=== PATIENT | male | born 1980 | race Caucasian/White ===

== ENCOUNTER → 2017-07-25 | Outpatient (CLI) | payer OTHER ==
[~2017-07-25] MED LIST: DILAUDID 4 MG TA4 M1 PO; IBUPROFEN 800800 M1 PO; KLOR-CON 1010 MEQ PO; LASIX 40 MG TAB40 M2 PO; MS CONTIN15 MG PO; NEURONTIN600 MG PO; OXYCODONE HCL15 MG PO; ROXICODONE15 M1 PO
--- NOTE | 2017-07-27 08:15 | PAINCON ---
[facility] [address] [place] [address] PAIN MANAGEMENT CONSULTATION Name: BETTINA MCCRAY Room: [facility] Ariana#: [id number] Admission: 07/25/17 Attend Phys: Mary Hartley Discharge: Date of : 76 Report #: [id number] THIS REPORT FOR: //name// CC: Reese Wilkerson The patient is a very pleasant 37-year-old gentleman well known to the pain clinic, typically treated for lumbar radiculopathy status post decompressive laminectomy, chronic pain requiring high risk complex medication management, component of right SI mediated pain. The patient was last seen in pain clinic on 05/30/2017, continued on baseline medication including MS Contin 15 mg b.i.d., oxycodone 15 mg 1 tablet 3-4 times a day, limit 100 tablets for 30 days. Current analgesics include gabapentin 600 mg t.i.d. and ibuprofen 800 mg t.i.d. Last random drug screen on 12/13/2016, was positive for prescribed medications. The patient returns to pain clinic today noting medications are generally providing sufficient analgesia to participate in activities of daily living, rates the pain as 7 on a VAS. 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 He uses a cane in his left hand. Chronic right lumbar radicular pain. He is status post multiple surgeries with chronic neuropathic pain, right lower extremity. PHYSICAL EXAMINATION: Unchanged, 5 feet 6 inches, 224 pounds gentleman, BMI is 36.3 kg/m2. Blood pressure 130/68, pulse 74, and respirations are 16. Alert and oriented to person, place and time, judged to be a reasonable historian. Rises from chair using armrest, moderately antalgic gait. Objective, decreased right hip flexion, lower extremity extension strength, slight loss of dorsiflexion on that side. We reviewed the fact that opiate medications are being used to provide analgesia adequate to support activities of daily living, not attempting to achieve a specific pain score on the 0-10 Visual Analog Scale. The current opiate medications are providing sufficient analgesia to allow the patient to participate in activities of daily living. The patient is not exhibiting any aberrant behavior suggestive of drug diversion. The patient is not having any adverse reactions to medications. The patient is not suffering from daytime somnolence or mental acuity changes. The patient is managing opiate-induced constipation with appropriate ryov-vnk-etxwvaa agents and dietary considerations. The patient was counseled on concern for caution with operating a motor vehicle while using opiate medications. A physical exam was performed and the patient's functional status was evaluated. All patients with back pain were advised against the bed rest greater than 4 days and were advised to return to normal activities. Pain score assessment was [facility] [address] [place] [address] PAIN MANAGEMENT CONSULTATION Name: SHAZIABETTINA C Room: [facility]#: [id number] Admission: 07/25/17 Attend Phys: Mary Hartley Discharge: Date of : 76 Report #: [id number] noted and the treatment plan was reviewed with the patient. All current medications, both prescribed and OTC were reviewed and reconciled on the electronic medical record. Tobacco screening was accomplished and smoking cessation was advised when indicated. BMI was noted and diet/exercise modification was recommended for all patients following outside normal parameters. I reviewed with the patient today their responsibilities to safeguard prescription medications, reviewed their responsibility to utilize medications only as prescribed by the physician. They are to seek and receive pain medications only from 1 physician group ( [facility]). They are to use 1 pharmacy and keep the clinic informed if they change pharmacies. Their responsibilities include making followup visits in a timely fashion and to avoid abrupt discontinuation of medication usage. Their responsibilities further include bringing their medications (bottles from the pharmacy with residual pills) to the visit for possible confirmation of pill counts and the patient understands it is their responsibility to submit to random drug screens to ensure both that the medications prescribed are present, and that no other controlled substances are present. All prescriptions provided today were generated electronically. ASSESSMENT: Lumbar radiculopathy status post decompressive laminectomy, neuropathic pain in the right lower extremity, right sacroiliac mediated pain by history requiring high risk complex medication management. RECOMMENDATIONS: Discussion with the patient today about therapeutic option. Again, recommended nicotine cessation, he does use tobacco "chew." We talked today about spinal cord stimulator as possible therapeutic option to help mitigate pain symptoms. We would like to continue baseline medication unchanged, MS Contin 15 mg b.i.d. and oxycodone 15 mg t.i.d. p.r.n. breakthrough pain. The patient was discharged in good and stable condition. I have taken the liberty of writing for 2 months of current medication, follow up at that time, earlier if needed. <ELECTRONICALLY SIGNED> By: Miguel Angel Wilkerson DO 07/27/17 0815 0725 [id number] Angel Wilkerson DO /nt
== END ==
LOC: M.PC 02:01
DX: M54.16 Radiculopathy, lumbar region (principal); M53.3 Sacrococcygeal disorders, not elsewhere classified; M79.661 Pain in right lower leg; G89.29 Other chronic pain; Z79.899 Other long term (current) drug therapy

== ENCOUNTER → 2017-09-19 | Outpatient (CLI) | payer OTHER ==
--- NOTE | 2017-09-20 10:21 | PAINCON ---
[facility] [address] [place] [address] PAIN MANAGEMENT CONSULTATION Name: BETTINA MCCRAY [id number] Admission: 09/19/17 Attend Phys: Mary Hartley Discharge: Date of : 76 Report #: [id number] THIS REPORT FOR: //name// CC: Reese Wilkerson The patient is a 37-year-old gentleman being treated for chronic lumbar radiculopathy status post decompressive laminectomy, right SI mediated pain requiring complex medication management. Last seen in the pain clinic 07/25/2017, continued on baseline medication including MS Contin 15 mg b.i.d. and oxycodone 15 mg 1 tablet up to 3 times a day, limit 90 tablets for 30 days. 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 The patient works at [employer] at [employer]. Primarily sedentary job, but does do some walking. He uses a cane "about 70% of the time" when walking. He has pain and weakness in the right leg, typically uses a cane in the left hand. PHYSICAL EXAMINATION: Shows 5 feet 6 inches, 228 pounds gentleman, BMI is modestly elevated at 35.8 kg/m2. Blood pressure is 132/75, pulse wnl, respirations 16. Rises from chair using armrest, modestly antalgic gait, diffuse tenderness across the low back. Lower extremity strength is otherwise preserved. Gait is generally tandem. The patient continues use nicotine products, he uses a tobacco chew and was counseled regarding same. We reviewed the fact that opiate medications are being used to provide analgesia adequate to support activities of daily living, not attempting to achieve a specific pain score on the 0-10 Visual Analog Scale. The current opiate medications are providing sufficient analgesia to allow the patient to participate in activities of daily living. The patient is not exhibiting any aberrant behavior suggestive of drug diversion. The patient is not having any adverse reactions to medications. The patient is not suffering from daytime somnolence or mental acuity changes. The patient is managing opiate-induced constipation with appropriate vbkw-bdb-hvivqlt agents and dietary considerations. The patient was counseled on concern for caution with operating a motor vehicle while using opiate medications. A physical exam was performed and the patient's functional status was evaluated. All patients with back pain were advised against the bed rest greater than 4 days and were advised to return to normal activities. Pain score assessment was noted and the treatment plan was reviewed with the patient. All current medications, both prescribed and OTC were reviewed and reconciled on the electronic medical record. Tobacco screening [place] [address] PAIN MANAGEMENT CONSULTATION Name: SHAZIABETTINA Room: [facility]#: [id number] Admission: 09/19/17 Attend Phys: Mary Hartley Discharge: Date of : 76 Report #: [id number] cessation was advised when indicated. BMI was noted and diet/exercise modification was recommended for all patients following outside normal parameters. I reviewed with the patient today their responsibilities to safeguard prescription medications, reviewed their responsibility to utilize medications only as prescribed by the physician. They are to seek and receive pain medications only from 1 physician group ( [facility]). They are to use 1 pharmacy and keep the clinic informed if they change pharmacies. Their responsibilities include making followup visits in a timely fashion and to avoid abrupt discontinuation of medication usage. Their responsibilities further include bringing their medications (bottles from the pharmacy with residual pills) to the visit for possible confirmation of pill counts and the patient understands it is their responsibility to submit to random drug screens to ensure both that the medications prescribed are present, and that no other controlled substances are present. All prescriptions provided today were generated electronically. I talked to the patient today about increasing physical activity to help with some weight loss, again counseled regarding cessation of nicotine products. Suggested water aerobics. The patient may be able to join the [facility] or look for a local rec center to do some aquatic therapy. This would probably be the easiest aerobic activity given that he does have some chronic pain in the right hip and SI joint. This would enable exercise without causing significant trauma to the knee and hip. ASSESSMENT: Symptomatic lumbar radiculopathy status post decompressive laminectomy, chronic axial back pain, sacroiliac mediated pain, requiring complex medication management, stable on baseline medications. RECOMMENDATION: Continue MS Contin 15 mg b.i.d., oxycodone 15 mg, limit one tablet 3 times a day. Increase physical activity, suggest water aerobics and smoking cessation. <ELECTRONICALLY SIGNED> By: Miguel Angel Wilkerson DO 09/20/17 1021 0845 [id number] Angel Wilkerson DO /nt
== END ==
LOC: M.PC 03:34
DX: M54.16 Radiculopathy, lumbar region (principal); M53.3 Sacrococcygeal disorders, not elsewhere classified; M54.9 Dorsalgia, unspecified; Z98.890 Other specified postprocedural states; Z79.899 Other long term (current) drug therapy

== ENCOUNTER 2017-09-30 21:14 | Emergency (ER) | payer OTHER ==
[~2017-09-30] VITALS: Ht 167.6 cm; Wt 96.2 kg
[~2017-09-30 21:14] MED LIST changes: -ROXICODONE15 M1 PO
[2017-09-30 21:42] LABS: ABSOLUTE BASOPHILS 0.1 thou/uL (0.0-0.2); ABSOLUTE EOSINOPHILS 0.2 thou/uL (0.0-0.7); ABSOLUTE LYMPHOCYTES 2.1 thou/uL (0.8-5.3); ABSOLUTE MONOCYTES 0.7 thou/uL (0.0-1.2); ABSOLUTE NEUTROPHILS 4.5 thou/uL (1.6-8.1); BASOPHILS 0.8 %; EOSINOPHILS 2.3 %; HEMATOCRIT 44.1 % (42.0-52.0); HEMOGLOBIN 14.9 gm/dL (14.0-18.0); LYMPHOCYTES 27.5 %; MCH 30.6 pg (26.0-34.0); MCHC 33.9 g/dL (28.0-37.0); MCV 90.4 fL (80.0-100.0); MPV 10.4 fl. (7.2-11.1); NUCLEATED RBCS 0 /100WBC; PLATELET COUNT* 276 thou/uL (150-400); POLYS 60.4 %; RBC 4.88 mil/uL (4.50-6.00); RDW-CV 12.5 % (10.5-14.5); WBC 7.5 thou/uL (4.0-11.0)
[2017-09-30 21:53] LABS: ANION GAP 7 mmol/L (7-16); BUN 8 mg/dL (7-18); CHLORIDE 105 mmol/L (98-107); CO2 33 mmol/L (21-32); GLUCOSE 89 mg/dL (70-99); POTASSIUM 3.5 mmol/L (3.5-5.1); SODIUM 145 mmol/L (136-145)
[2017-09-30 22:00] LABS: ALBUMIN 4.2 g/dL (3.4-5.0); ALKALINE PHOSPHATASE 95 U/L (46-116); SGOT 40 U/L (15-37); SGPT 105 U/L (30-65); TOTAL BILIRUBIN 0.5 mg/dL (<0.1-1.0); TOTAL PROTEIN 7.7 g/dL (6.4-8.2); TROPONIN-I LEVEL <0.06 ng/mL (<0.06)
[2017-09-30 22:19] VITALS: BP 123/72
--- NOTE | 2017-10-01 18:06 | EKG ---
[place] [address] ELECTROCARDIOGRAM REPORT Name: BETTINA MCCRAY Room: [facility]#: [id number] Admission: 09/30/17 Attend Phys: Discharge: 09/30/17 Date of : 76 Report #: [id number] THIS REPORT FOR: //name// [facility] ED Test Date: 2017-09-30 Test Time: 21:19:12 Pat Name: BETTINA MCCRAY Department: Room: Gender: [place] Reporter: : 1980 Requested By: Sonia Davidson Order Number: [id number] MD: Josse Jones Measurements Intervals [place] Rate: 75 P: 48 SD: 192 QRS: 81 QRSD: 87 T: 34 QT: 354 QTc: 396 Interpretive Statements Sinus rhythm Compared to ECG 01/23/2015 00:08:13 First degree AV block no longer present Electronically Signed On 10-01-2017 18:06:19 CDT by Josse Jones [email or web address] <ELECTRONICALLY SIGNED> By: Josse Jones MD, [facility] 10/01/17 1806 18 Josse Jones MD, FACC /EPI
[2017-11-14] MEDS ORDERED: MS CONTIN15 MG PO (09:01)
[2017-11-14] MEDS ORDERED: OXYCODONE HCL15 MG PO (09:01)
[2018-01-09] MEDS ORDERED: OXYCODONE HCL15 MG PO (08:49)
[2018-01-09] MEDS ORDERED: ROXICODONE15 M1 PO (08:49)
[2018-01-09] MEDS ORDERED: MS CONTIN15 MG PO (08:49)
[2018-03-07] MEDS ORDERED: NEURONTIN600 MG PO (08:10)
[2018-03-07] MEDS ORDERED: IBUPROFEN 800800 M1 PO (08:10)
[2018-03-07] MEDS ORDERED: OXYCODONE HCL15 MG PO (08:10)
[2018-03-07] MEDS ORDERED: MS CONTIN15 MG PO (08:10)
[2018-03-07] MEDS ORDERED: ROXICODONE15 M1 PO (08:12)
[2018-05-02] MEDS ORDERED: ROXICODONE15 M1 PO (08:09)
[2018-05-02] MEDS ORDERED: OXYCODONE HCL15 MG PO (08:09)
[2018-05-02] MEDS ORDERED: IBUPROFEN 800800 M1 PO (08:09)
[2018-05-02] MEDS ORDERED: MS CONTIN15 MG PO (08:09)
[2018-05-02] MEDS ORDERED: NEURONTIN600 MG PO (08:09)
== END 2017-09-30 22:20 | disposition home or self-care (01) ==
LOC: M.ERS 21:14
PROVIDERS: Emergency Medicine
DX: R07.89 Other chest pain (principal); F41.9 Anxiety disorder, unspecified

== ENCOUNTER → 2017-11-14 | Outpatient (CLI) | payer OTHER ==
[~2017-11-14] MED LIST changes: +ROXICODONE15 M1 PO
--- NOTE | 2017-11-15 09:37 | PAINCON ---
[facility] [address] [place] [address] PAIN MANAGEMENT CONSULTATION Name: BETTINA MCCRAY [facility] [id number] Admission: 11/14/17 Attend Phys: Mary Hartley Discharge: Date of : 76 Report #: [id number] THIS REPORT FOR: //name// CC: Reese Wilkerson DATE OF SERVICE: 11/14/2017 The patient is a very pleasant 37-year-old gentleman typically treated for lumbar radiculopathy status post decompressive laminectomy, right SI mediated pain requiring complex medication management. Last seen in pain clinic 09/19/2017. Continued on baseline medication including MS Contin 15 mg b.i.d., oxycodone 15 mg t.i.d. Last random drug screen 12/13/2016 is positive for prescribed medications. He returns to pain clinic today. 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 He notes he has had increasing stress recently. In fact, he was seen in the ER 09/30/2017 with chest pain. Fortunately, EKG and enzymes ruled out any significant cardiac issue. He notes he is starting through a divorce, concerned he does have an 18-year-old daughter and a 14-year-old son. Tragically, he and his have developed irreconcilable differences. He notes he has continued to use tobacco (chew), but is endeavoring to quit. He notes medications continue to allow him to participate in activities of daily living. Pain is "about the same," rates it a 3 on a VAS, tingling in the bottom of the right foot with paresthesia with standing too long. PHYSICAL EXAMINATION: Otherwise unchanged, a 37-year-old gentleman, BMI is modestly elevated at 33.6 kilograms per meter squared. Blood pressure 125/68, pulse 74, respirations 16. Alert and oriented to person, place and time, judged to be a reasonable historian, uses a cane for balance. Rises from chair using armrest, modestly antalgic gait. Straight right leg is modestly diminished in strength for the left. We reviewed the fact that opiate medications are being used to provide analgesia adequate to support activities of daily living, not attempting to achieve a specific pain score on the 0-10 Visual Analog Scale. The current opiate medications are providing sufficient analgesia to allow the patient to participate in activities of daily living. The patient is not exhibiting any aberrant behavior suggestive of drug diversion. The patient is not having any adverse reactions to medications. The patient is not suffering from daytime somnolence or mental acuity changes. The patient is managing opiate-induced constipation with appropriate enws-psl-qtcnirw agents and dietary considerations. The patient was counseled on concern for caution with operating a motor vehicle while using opiate medications. A physical exam was performed and the [place] [address] PAIN MANAGEMENT CONSULTATION Name: BETTINA MCCRAY Room: [facility] [address]#: [id number] Admission: 11/14/17 Attend Phys: Mary Hartley Discharge: Date of : 76 Report #: [id number] All patients with back pain were advised against the bed rest greater than 4 days and were advised to return to normal activities. Pain score assessment was noted and the treatment plan was reviewed with the patient. All current medications, both prescribed and OTC were reviewed and reconciled on the electronic medical record. Tobacco screening was accomplished and smoking cessation was advised when indicated. BMI was noted and diet/exercise modification was recommended for all patients following outside normal parameters. I reviewed with the patient today their responsibilities to safeguard prescription medications, reviewed their responsibility to utilize medications only as prescribed by the physician. They are to seek and receive pain medications only from 1 physician group ( [facility]). They are to use 1 pharmacy and keep the clinic informed if they change pharmacies. Their responsibilities include making followup visits in a timely fashion and to avoid abrupt discontinuation of medication usage. Their responsibilities further include bringing their medications (bottles from the pharmacy with residual pills) to the visit for possible confirmation of pill counts and the patient understands it is their responsibility to submit to random drug screens to ensure both that the medications prescribed are present, and that no other controlled substances are present. All prescriptions provided today were generated electronically. ASSESSMENT: Chronic axial back pain, lumbar radiculopathy, status post decompressive laminectomy, right sacroiliac joint mediated pain requiring complex medication management. RECOMMENDATION: Continue baseline narcotic unchanged. Follow up in 2 months for reevaluation. <ELECTRONICALLY SIGNED> By: Miguel Angel Wilkerson DO 11/15/17 0937 1541 [id number] Angel Wilkerson DO /nt
== END ==
LOC: M.PC 04:35
DX: M54.16 Radiculopathy, lumbar region (principal); M53.3 Sacrococcygeal disorders, not elsewhere classified; G89.29 Other chronic pain; Z79.899 Other long term (current) drug therapy

== ENCOUNTER → 2018-01-09 | Outpatient (CLI) | payer OTHER ==
--- NOTE | 2018-01-10 07:56 | PAINCON ---
[facility] [address] [place] [address] PAIN MANAGEMENT CONSULTATION Name: BETTINA MCCRAY [facility] [id number] Admission: 01/09/18 Attend Phys: Mary Hartley Discharge: Date of : 76 Report #: [id number] THIS REPORT FOR: //name// CC: Reese Wilkerson DATE OF SERVICE: 01/09/2018 HISTORY OF PRESENT ILLNESS: The patient is a 37-year-old gentleman being treated for lumbar radiculopathy status post decompressive laminectomy, axial back pain requiring complex medication management, component of right SI mediated pain. Last seen in the pain clinic on 11/14/2017, continued on MS Contin 15 mg b.i.d. and oxycodone 15 mg IR up to t.i.d. for breakthrough pain. The patient returns to the pain clinic today. He is not using his cane today. Notes he had some increasing back spasm recently. Physical exam does show thoracic paravertebral muscle tenderness with trigger points noted from about T5-T9. We talked about trigger point injections today and unfortunately, his insurance company has some fairly [employer] rules and restrictions and we were unable to obtain prior authorization for same. PHYSICAL EXAMINATION: GENERAL: Notes a 5 feet 6 inches, 193 pounds gentleman, BMI is 31.2 kilograms per meter squared. VITAL SIGNS: Blood pressure 118/74, pulse 68, respirations 16. NEUROLOGIC: Alert and oriented to person, place and time, judged to be a reasonable historian. MUSCULOSKELETAL: Rises from chair using armrest. Again, diffuse tenderness and reproducible trigger points in the mid thoracic paravertebral muscles. Pain is exacerbated with rotation and sidebending. Lower extremity strength is generally preserved. Lumbar flexion is limited. Straight leg raise is nominally positive bilaterally. We reviewed the fact that opiate medications are being used to provide analgesia adequate to support activities of daily living, not attempting to achieve a specific pain score on the 0-10 Visual Analog Scale. The current opiate medications are providing sufficient analgesia to allow the patient to participate in activities of daily living. The patient is not exhibiting any aberrant behavior suggestive of drug diversion. The patient is not having any adverse reactions to medications. The patient is not suffering from daytime somnolence or mental acuity changes. The patient is managing opiate-induced constipation with appropriate lkmv-xny-yqrzfup agents and dietary considerations. The patient was counseled on concern for caution with operating a motor vehicle while using opiate medications. A physical exam was performed and the patient's functional [place] [address] PAIN MANAGEMENT CONSULTATION Name: SHAZIABETTINA Room: [facility]#: [id number] Admission: 01/09/18 Attend Phys: Mary Hartley Discharge: Date of : 76 Report #: [id number] All patients with back pain were advised against the bed rest greater than 4 days and were advised to return to normal activities. Pain score assessment was noted and the treatment plan was reviewed with the patient. All current medications, both prescribed and OTC were reviewed and reconciled on the electronic medical record. Tobacco screening was accomplished and smoking cessation was advised when indicated. BMI was noted and diet/exercise modification was recommended for all patients following outside normal parameters. I reviewed with the patient today their responsibilities to safeguard prescription medications, reviewed their responsibility to utilize medications only as prescribed by the physician. They are to seek and receive pain medications only from 1 physician group ( [facility]). They are to use 1 pharmacy and keep the clinic informed if they change pharmacies. Their responsibilities include making followup visits in a timely fashion and to avoid abrupt discontinuation of medication usage. Their responsibilities further include bringing their medications (bottles from the pharmacy with residual pills) to the visit for possible confirmation of pill counts and the patient understands it is their responsibility to submit to random drug screens to ensure both that the medications prescribed are present, and that no other controlled substances are present. All prescriptions provided today were generated electronically. ASSESSMENT: Symptomatic lumbar radiculopathy status post decompressive laminectomy, axial back pain requiring complex medication management, component of right sacroiliac mediated pain, new diagnosis of myofascial pain component. RECOMMENDATION: I had a long discussion with the patient today about therapeutic options. He was seen in the pain clinic approximately 30 minutes today. Greater than 50% of this time was spent counseling the patient, discussing therapeutic options. Given that we cannot do trigger point injections, we talked about icing the mid back area and showed specific stretches for those mid thoracic paravertebral muscles. If this does not afford adequate relief, we will seek authorization for trigger point injections at next visit. I have taken the liberty of renewing current medication including MS Contin 15 mg b.i.d., OxyIR 15 mg 1/2-1 tablet 3 times a day, limit 90 tablets for 30 days, gabapentin 600 mg t.i.d. and ibuprofen 800 mg t.i.d. Follow up in 2 months for reevaluation. We will have the patient followup with Dr. Juan Smyth for ongoing medication management. A buccal swab was accomplished today. No aberrant behaviors suggestive for drug [facility] [address] [place] [address] PAIN MANAGEMENT CONSULTATION Name: BETTINA MCCRAY Room: [facility]#: [id number] Admission: 01/09/18 Attend Phys: Mary Hartley Discharge: Date of : 76 Report #: [id number] diversion, simply complying with our opiate consent to treat contract. Last random drug screen on 12/13/2016 was positive for prescribed medications. Discharged in good and stable condition after a 25-minute visit. <ELECTRONICALLY SIGNED> By: Miguel Angel Wilkerson DO 01/10/18 0756 1310 [id number] Angel Wilkerson DO /nt
== END ==
LOC: M.PC 04:12
DX: M54.16 Radiculopathy, lumbar region (principal); M54.5 Low back pain; M79.1 Myalgia; Z79.899 Other long term (current) drug therapy

== ENCOUNTER → 2018-03-07 | Outpatient (CLI) | payer OTHER ==
--- NOTE | 2018-03-08 08:37 | PAINCON ---
[address] [address] PAIN MANAGEMENT CONSULTATION Name: SHAZIABETTINA Albert [facility] [id number] Admission: 03/07/18 Attend Phys: Danay Smyth MD Discharge: Date of : 76 Report #: [id number] THIS REPORT FOR: //name// CC: Reese Smyth DATE OF SERVICE: 03/07/2018 CHIEF COMPLAINT: Low back and right leg pain. HISTORY OF PRESENT ILLNESS: The patient is a 38-year-old gentleman who has been followed in the Pain Clinic for quite a number of years. He has had some problems with his back since 2005. He had his first back surgery at the time at the L4-L5 distribution. He has been followed by Dr. Miguel Angel Wilkerson. This is my first time visiting with the patient. He states that he has pain, which he rates as a 2/10 at this juncture, it can rise to a level of 9. He walks with a cane. He states that muscle strength seems to be reasonably well kept, but that ambulation is easier with a cane. He does not use it if he walks and goes short distances. He has had no problem with his medications. He has taken the medications as prescribed. He is aware that opioid medications can cause dependence. He is aware that the efficacy of the medication can decrease over time secondary to tolerance. He feels that his morphine and oxycodone in conjunction with gabapentin and ibuprofen continue to be beneficial. He continues to work on a regular basis. He has noted some problems with muscle spasms in the past. He has noted some pain and discomfort in the mid portion of his back in between T5 and T9. Overall, this has improved as well. ALLERGIES: No known drug allergies. CURRENT MEDICATIONS: Neurontin 600 mg t.i.d., ibuprofen 800 mg t.i.d., morphine ER 15 mg 1 tablet b.i.d., oxycodone instant release 15 mg 1 p.o. t.i.d. PAST MEDICAL HISTORY: 1. History of lumbar radiculopathy. 2. Multilevel degenerative disease of lumbar spine. 3. Epidural fibrosis. 4. Hypertension. 5. Chronic pain syndrome. 6. Rapid heart rate. PAST SURGICAL HISTORY: 1. Left ear tube. 2. Back surgery at L4-L5 in 2005, second surgery in 2006. REVIEW OF SYSTEMS: [place] [address] PAIN MANAGEMENT CONSULTATION Name: BETTINA MCCRAY Room: [facility]#: [id number] Admission: 03/07/18 Attend Phys: Danay Smyth MD Discharge: Date of : 76 Report #: [id number] CONSTITUTIONAL: The patient denies fever, chills or visual changes. RESPIRATORY/CARDIOVASCULAR: Denies any problems with his respiratory or cardiovascular at this juncture. He has had palpitation in the past. GASTROINTESTINAL: Negative. GENITOURINARY: Negative. MUSCULOSKELETAL: Negative. SKIN: Denies any problems. NEUROLOGIC: He has numbness and tingling in the lower right leg. PSYCHIATRIC: Denies significant psychiatric disturbances. DIAGNOSTIC DATA: 1. No new laboratory values, but MRI on 04/22/2015 reveals right lateral annulus tear at L3-L4 with a small right lateral disk extrusion which is more prominent. 2. There is moderate bilateral foraminal narrowing at L3-L4. 3. There is a small focal central disk protrusion at L5-S1. This has slightly improved. There is a tiny right paramedian disk extrusion at L4-L5. This is stable. Left foramen narrowing is noted elsewhere. Postoperative changes are noted at L4-L5. PAIN CLINIC ASSESSMENT: 1. The patient has arthritic changes in the lower portion of his back secondary to surgery. 2. Height 5 feet 6 inches, weight 195 pounds, BMI is 31. 3. Vital signs: Blood pressure 138/80, heart rate 75, respiratory rate 16, room air saturation 98%, temperature 98.3. 4. Pain score: 2/10. 5. Fall risk: The patient has not fallen in the last 3 months. 6. Blood thinner: The patient is not on a blood thinning medication. 7. Hypertension: The patient is being treated for hypertension. 8. Opioid: The patient is on opioid medications and gets them from one source from the Pain Clinic. 9. Risk assessment tool: The patient is low risk for opioid use. 10. Functional assessment tool. 11. Recreational drug use: The patient denies use of recreational drugs. 12. Tobacco: The patient denies use of tobacco. 13. Alcohol: The patient denies use of alcoholic beverages. PHYSICAL EXAMINATION: GENERAL: The patient is a well-developed, well-nourished white male. He appears his stated age. He is alert and oriented x 3. His affect is appropriate. Speech is fluent. HEENT: Normocephalic, atraumatic. Extraocular eye muscles intact. Sclerae nonicteric. Hearing is within normal limits. Mucous membranes are moist. NECK: Without adenopathy or JVD. HEART: Regular rate. [place]1 [place] [address] PAIN MANAGEMENT CONSULTATION Name: BETTINA MCCRAY Room: [facility]#: [id number] Admission: 03/07/18 Attend Phys: Danay Smyth MD Discharge: Date of : 76 Report #: [id number] LUNGS: Clear to auscultation. ABDOMEN: Nontender. MUSCULOSKELETAL: Upper extremity muscle strength is judged to be 5/5 for the major muscle groups with symmetry without neurological deficit. Musculoskeletal without scoliosis, kyphosis or lordosis. On the lumbar area, the patient has a well-healed scar on the posterior portion of his back. He walks with a cane. He has an antalgic gait. He complains of some weakness in his right leg. He has some low back pain in the mid portion of the low back area. IMPRESSION: 1. Chronic pain, status post lumbar surgery with continued pain and discomfort. 2. Lumbar radiculopathy, status post lumbar diskectomy and decompression at L4-L5. 3. Multiple degenerative disk disease of the lumbar spine with bulging disks at L4-L5 and L5-S1 with small central annulus tear at L5-S1. 4. Epidural fibrosis at L4-L5. 5. Multi-degenerative facet arthropathy of the lumbar spine. 6. History of hypertension. 7. Chronic pain syndrome. 8. Episode of palpitations with no significant clinical findings. RECOMMENDATIONS: Risks and benefits of opioid therapy were again discussed. Possible complications of their use were discussed. They include addiction as well as decreased effectiveness over a period of time. The patient will continue with his current regimen. A script for his medications has been written. He will follow up in the Pain Clinic as needed. He will call us if he has any concerns. We would like to thank you for letting us participate in his care. We hope he continues to improve. <ELECTRONICALLY SIGNED> By: Danay Smyth MD 03/08/18 0837 [id number]. Juan Smyth MD /nt
== END ==
LOC: M.PC 04:57
DX: M51.36 Other intervertebral disc degeneration, lumbar region (principal); M51.16 Intervertebral disc disorders with radiculopathy, lumbar region; M12.88 Other specific arthropathies, not elsewhere classified, other specified site; I10 Essential (primary) hypertension

== ENCOUNTER → 2018-05-02 | Outpatient (CLI) | payer OTHER ==
--- NOTE | 2018-05-06 10:00 | PAINCON ---
[address] [address] PAIN MANAGEMENT CONSULTATION Name: SHAZIABETTINA Albert Room: [facility] [address]#: [id number] Admission: 05/02/18 Attend Phys: Danay Smyth MD Discharge: Date of : 76 Report #: [id number] THIS REPORT FOR: //name// CC: Reese Smyth DATE OF SERVICE: 05/02/2018 FOLLOWUP COMPLAINT: Here for medicines. HISTORY: The patient is a 38-year-old gentleman who has been followed in the Pain Clinic because of lumbar radiculopathy. Continues to have some pain and discomfort, which radiates down into his right leg. He is also experiencing some pain and discomfort in the upper thoracic area at about T8-T9. This is in the midline area. Denies any trauma, denies any new physical changes such as increased activity. He feels that his medications are working reasonably well. Rates his pain as a 2/10 at this juncture. It can rise to the level of 4. Feels that his pain is generally 50-80% better. Feels that the gabapentin medication, ibuprofen, oxycodone as well as morphine continue to be beneficial. He is taking medication as prescribed. He has found that chiropractic therapy is helpful. He has had some adjustments. Feels that these have helped calm down the spasms he has been experiencing. He does have a history of anxiety. Overall, things are going reasonably well and he would like to continue with his current medications. ALLERGIES: No known drug allergies. CURRENT MEDICATIONS: Neurontin 600 mg, ibuprofen 800 mg t.i.d., morphine ER 15 mg b.i.d., and oxycodone IR 15 mg 1 p.o. t.i.d. PAIN CLINIC ASSESSMENT/PQRS: 1. The patient is not being treated for osteoarthritis or rheumatoid arthritis. 2. Height 5 feet 6 inches, weight 194 pounds, BMI is 31. 3. Vital Signs: Blood pressure 119/77, heart rate 70, respiratory rate 16, room air saturation 98%, and temperature 98.1. 4. Pain intensity 10/30-09/01. 5. Fall. The patient has not fallen in the last 3 months. 6. Blood thinner. The patient is not on a blood thinning medication. 7. Hypertension. The patient is not being treated for hypertension. 8. Opioid therapy. The patient receives this medication from one source, the pain clinic. 9. Risk assessment tool. 10. Functional assessment tool. 11. Recreational drug use. The patient denies use of recreational drugs. 12. Tobacco: The patient does not smoke, but does chew tobacco. We talked to him for 3 minutes regarding the benefits of the cessation [place] [address] PAIN MANAGEMENT CONSULTATION Name: BETTINA MCCRAY Room: [facility]#: [id number] Admission: 05/02/18 Attend Phys: Danay Smyth MD Discharge: Date of : 78 Report #: [id number] He has chewed for the last 18 years. 13. Alcohol. He denies use of alcoholic beverages. PHYSICAL EXAMINATION: GENERAL: The patient is a well-developed, well-nourished white male. Appears his stated age. He is alert and oriented x 3. His affect is appropriate. Speech is fluent. HEENT: Normocephalic, atraumatic. Extraocular eye muscles intact. Sclerae are nonicteric. Hearing is within normal limits. Mucous membranes are moist. NECK: Without adenopathy or JVD. HEART: Regular rate. S1, S2. LUNGS: Clear to auscultation. ABDOMEN: Nontender. Bowel sounds present. MUSCULOSKELETAL: Without scoliosis, kyphosis or lordosis. The patient has some soreness in the T8/T9 midline area in the interspinous area. The patient also has some pain and discomfort in the lower portion of his back with some pain that radiates down to the right leg indicating lumbar radiculopathy involving the L4-L5 and L5-S1 areas. He is not walking with a cane at this juncture. His gait is less antalgic. Does complain of some weakness in his right leg. IMPRESSION: 1. Chronic pain status post lumbar surgery with continued pain and discomfort. 2. Lumbar radiculopathy, status post lumbar diskectomy and decompression in the L4-L5. 3. Multiple degenerative disk disease at lumbar spine with bulging disks at L4-L5 and L5-S1 with a small central annular tear at L5-S1. 4. Epidural fibrosis at L4-L5. 5. Multiple degenerative facet arthropathy of the lumbar spine. 6. History of hypertension. 7. Chronic pain syndrome. 8. Episodes of palpitations without significant clinical findings. RECOMMENDATIONS: We discussed the risks and benefits of opioid use. The patient feels these medications are helpful. ____ him to engage in activities of daily living, he would not be able to without their use. Feels that the medications are helpful. He is aware that 72,000 people last year as a result of narcotic medication overdoses. He feels his medications helpful. He would like to continue with his medication. He is aware also that long-term use of opioids can become less effective secondary to tolerance. Keeps his medication in a guarded area. We would like to thank you for letting us participate in his care. We hope he continues to improve. <ELECTRONICALLY SIGNED> By: Danay Smyth MD 05/06/18 [id number]. Juan Smyth MD /nt
== END ==
LOC: M.PC 05:14
DX: M06.9 Rheumatoid arthritis, unspecified (principal); I10 Essential (primary) hypertension; F17.200 Nicotine dependence, unspecified, uncomplicated; F19.10 Other psychoactive substance abuse, uncomplicated; W19.XXXA Unspecified fall, initial encounter; Z68.31 Body mass index [BMI] 31.0-31.9, adult; Z79.891 Long term (current) use of opiate analgesic

== ENCOUNTER → 2018-07-11 | Outpatient (CLI) | payer OTHER ==
--- NOTE | ~2018-07-11 | PAINCON ---
[address] [address] PAIN MANAGEMENT CONSULTATION Name: BETTINA MCCRAY Room: [facility].#: [id number] Admission: 07/11/18 Attend Phys: Danay Smyth MD Discharge: Date of : 76 Report #: [id number] THIS REPORT FOR: //name// CC: Reese Smyth DATE OF SERVICE: 07/11/2018 PRIMARY CARE PHYSICIAN: Reese Mckay M.D. CHIEF COMPLAINT: Here for medication renewal. FOLLOWUP HISTORY: The patient is a 38-year-old gentleman who has been followed in the pain clinic because of chronic lumbar pain. Has pain and discomfort, which radiates down into his right leg. He continues to have pain in his low back as well. He has seen a chiropractor. He feels that things are very helpful. Notes that the torque releases are helpful. Feels that it is helping with his anxiety. The patient has decreased pain in the thoracic area. Rates his pain as a 2/10 today. Overall, he feels his medications of oxycodone, morphine, gabapentin and ibuprofen continue to be helpful. Feels that there is 70-80% beneficial in the pain relief, which he is receiving. Continues to have noticed benefits from his therapy. I would like to continue with his current medications. ALLERGIES: No known drug allergies. CURRENT MEDICATIONS: Neurontin 600 mg, ibuprofen 800 mg t.i.d., morphine ER 15 mg b.i.d., oxycodone IR 15 mg p.o. t.i.d. PAIN CLINIC ASSESSMENT AND PQRS: 1. The patient is not being treated for osteoarthritis or rheumatoid arthritis. 2. Height 5 feet 6 inches, weight 205 pounds, BMI is 33.0. 3. Pain intensity is 2/10. 4. Vital Signs: Blood pressure 127/76, heart rate 70, respiratory rate 16, room air saturation 98%, temperature 98.1. 5. Fall history. The patient has not fallen in the last 3 months. 6. Blood thinner. The patient is not on a blood thinning medication. 7. Hypertension. The patient is not being treated for hypertension. 8. Opioid therapy. The patient receives his medications from one source, the pain clinic. 9. Risk assessment tool, low for opioid use. 10. Functional assessment tool. 11. Recreational drug use. The patient denies use of recreational drugs. 12. Tobacco: The patient does not smoke, but does chew tobacco. Again, we discussed the benefits [place] [address] PAIN MANAGEMENT CONSULTATION Name: SHAZIABETTINA C Room: [facility]#: [id number] Admission: 07/11/18 Attend Phys: Danay Smyth MD Discharge: Date of : 76 Report #: [id number] 13. Alcohol: The patient denies use of alcoholic beverages. PHYSICAL EXAMINATION: GENERAL: The patient is a well-developed, well-nourished, white male. Appears his stated age. He is alert and oriented x 3. His affect is appropriate. Speech is fluent. HEENT: Normocephalic, atraumatic. Extraocular eye muscles intact. Sclerae nonicteric. Mucous membranes are moist. NECK: Without adenopathy or JVD. HEART: Regular rate. S1, S2. LUNGS: Clear to auscultation without rales. ABDOMEN: Nontender. Bowel sounds present. MUSCULOSKELETAL: Without scoliosis, kyphosis, or lordosis. The patient walks with a cane. Has somewhat antalgic gait. Pain is radiating down into his right leg and involves the L4-L5 and L5-S1 areas. IMPRESSION: 1. Chronic pain, lumbar radicular area. 2. Lumbar radiculopathy, status post lumbar diskectomy with decompression in the L5 dermatomal distribution. 3. Multiple degenerative disk disease at lumbar spine with bulging disk at L4-L5 and L5-S1 with a small central annular tear at L5-S1. 4. Epidural fibrosis at L4-L5. 5. Multiple degenerative facet arthropathy at the lumbar spine. 6. History of hypertension. 7. Chronic pain syndrome, treated with opioid medication. 8. Episodes of palpitation without significant clinical findings. RECOMMENDATIONS: We discussed treatment options with the patient. Risks and benefits of opioid medication were again reviewed. They include possibility of addiction as well as less effectiveness over a period of time secondary to tolerance. The patient feels his medications are working reasonably well. He has returned to the pain clinic for renewal of them. Continues with some chiropractic activity, which he finds is beneficial. A script for his medications has been written for Roxicodone 15 mg 1 p.o. t.i.d., morphine ER 15 mg 1 p.o. b.i.d., gabapentin 600 mg 1 p.o. t.i.d., and ibuprofen 800 mg 1 p.o. t.i.d. We would like to thank you for letting us participate in his care. We hope he continues to improve. By: [id number]. Juan Smyth MD /PMT
== END ==
LOC: M.PC 01:42
DX: M51.17 Intervertebral disc disorders with radiculopathy, lumbosacral region (principal); M12.88 Other specific arthropathies, not elsewhere classified, other specified site; G89.4 Chronic pain syndrome; I10 Essential (primary) hypertension; R00.2 Palpitations; G96.19 Other disorders of meninges, not elsewhere classified; Z79.899 Other long term (current) drug therapy

== ENCOUNTER → 2018-09-05 | Outpatient (CLI) | payer OTHER ==
--- NOTE | 2018-09-10 09:15 | PAINCON ---
[address] [address] PAIN MANAGEMENT CONSULTATION Name: SHAZIABETTINA Albert Room: [facility] [address]#: [id number] Admission: 09/05/18 Attend Phys: Danay Smyth MD Discharge: Date of : 78 Report #: [id number] THIS REPORT FOR: //name// CC: Reese Smyth DATE OF SERVICE: 09/05/2018 CHIEF COMPLAINT: Here for medication renewal. FOLLOWUP HISTORY: The patient is a 38-year-old gentleman, who has been followed in the Pain Clinic because of chronic lumbar pain. He finds that his medications are helpful. He has pain, which radiates down into his right leg. He does walk with a cane and with a limp. He does follow up and is treated by chiropractic treatment. He finds that these are beneficial as well. He rates his pain as a 2/10 today. He has noted no significant worsening of his pain since last visit. He feels that his medications are helpful as well. The patient states that he has had this problem for a number of years. He continues to take his medication of oxycodone as well as morphine on a regular basis. He feels that gabapentin and ibuprofen are helpful as well. He rates that his pain is about a 70-80% improved. He has returned to the Pain Clinic and would like to continue with his current medical regimen. ALLERGIES: No known drug allergies. CURRENT MEDICATIONS: Neurontin 600 mg, ibuprofen 800 mg t.i.d., morphine ER 15 mg b.i.d., oxycodone IR 15 mg 1 p.o. t.i.d. PAIN CLINIC ASSESSMENT AND PQRS: 1. The patient is not being treated for osteoarthritis or rheumatoid arthritis. 2. Height 5 feet 6 inches, weight 213 pounds, BMI is 34.5. 3. Blood pressure 122/72, heart rate 70, respiratory rate 16, room air saturation is 94%, temperature 98.1. 4. Pain intensity: 09/01. 5. Fall history: The patient has not fallen in the last 3 months. He does walk with a cane. 6. Blood thinner: The patient is not on a blood thinning medication. 7. Hypertension: The patient is not being treated for hypertension. 8. Opioid therapy: The patient receives his medication from one source from the Pain Clinic. 9. Risk assessment tool: Low for opioid use. 10. Functional assessment tool. 11. Recreational drug use: The patient denies use of recreational drugs. 12. Tobacco: The patient denies use of tobacco smoke, but does chew tobacco. Risks and benefits of tobacco cessation were discussed. 13. Alcohol: The patient [place] [address] PAIN MANAGEMENT CONSULTATION Name: BETTINA MCCRAY Room: [facility]#: [id number] Admission: 09/05/18 Attend Phys: Danay Smyth MD Discharge: Date of : 76 Report #: [id number] PHYSICAL EXAMINATION: GENERAL: The patient is a well-developed, well-nourished, white male. He appears his stated age. He is alert and oriented x 3. His affect is appropriate. Speech is fluent. HEENT: Normocephalic, atraumatic. Extraocular eye muscles intact. Sclerae nonicteric. Mucous membranes are moist. NECK: Without adenopathy or JVD. HEART: Regular rate. S1 and S2. LUNGS: Clear to auscultation without rhonchi or rales. ABDOMEN: Nontender. Bowel sounds present. MUSCULOSKELETAL: Without significant scoliosis, kyphosis or lordosis. The patient does walk with a cane. He has somewhat a slow and antalgic gait. He has pain that radiates down into his right leg in the L4-L5 dermatomal distribution as well as at the L5-S1 area. IMPRESSION: 1. Chronic pain with radiculopathy in the lumbar area. 2. Status post lumbar diskectomy with decompression at the L5 dermatomal distribution. 3. Multiple degenerative disk disease in the lumbar spine with bulging disk at L4-L5 and L5-S1 with a small central annular tear at L4-L5. 4. Epidural fibrosis at L4-L5. 5. Multiple degenerative facet arthropathy at the lumbar spine. 6. History of hypertension. 7. Chronic pain syndrome treated with opioid medication. 8. Episodes of palpitation without significant clinical findings. RECOMMENDATIONS: We discussed treatment options with the patient. Risks and benefits of opioid medications were discussed. Long-term use of opioids can cause some lessening of their effect secondary to development of tolerance. The patient feels that his medications are working reasonably well. He has no problems with them. He states that he does continue to use his medications on a regular basis. The patient states that he keeps his medications in a guarded area. He would like his medications of Roxicodone 15 mg 1 p.o. t.i.d., morphine 15 mg p.o. b.i.d., gabapentin 600 mg t.i.d., and ibuprofen 800 mg to be renewed, these have been rewritten for the patient. He will call us if he has any concerns. We would like to thank you for letting us participate in his care. We hope he continues to improve. <ELECTRONICALLY SIGNED> By: Danay Smyth MD 09/10/18 0915 [id number]. Juan Smyth MD /nt
== END ==
LOC: M.PC 08:10
DX: M47.26 Other spondylosis with radiculopathy, lumbar region (principal); M51.37 Other intervertebral disc degeneration, lumbosacral region; I10 Essential (primary) hypertension

== ENCOUNTER → 2018-11-07 | Outpatient (CLI) | payer OTHER ==
--- NOTE | 2018-11-08 13:10 | PAINCON ---
[address] [address] PAIN MANAGEMENT CONSULTATION Name: SHAZIABETTINA Albert Room: [facility] KAVITA Lane#: [id number] Admission: 11/07/18 Attend Phys: Danay Smyth MD Discharge: Date of : 76 Report #: [id number] THIS REPORT FOR: //name// CC: Reese Smyth DATE OF SERVICE: 11/07/2018 CHIEF COMPLAINT: "Things are going pretty well. 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 As you recall, he suffers from chronic lumbar pain. He finds his medications continue to be helpful. He does stay reasonably active. 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 He has done this for about the last year. Overall, things are going reasonably well. He has had no significant changes in his condition. He notes that he continues to have pain that radiates down into his right leg. He rates his pain as a 4/10. Does continue to walk with a cane and has a limp. Rates his pain as 4 today. It oftentimes is a 2. Feels that the oxycodone medication as well as morphine help to regulate his pain, gabapentin and ibuprofen remained helpful when he continues with these medications. Overall, he feels he gets a 75-80% improvement in his pain with his current medical management. He has returned today for renewal of his medications. Activities such as walking and cold can exacerbate his pain. His medication as well as use of heat on his back as are beneficial. ALLERGIES: No known drug allergies. MEDICATIONS: Neurontin 600 mg, ibuprofen 800 mg t.i.d., morphine ER 15 mg b.i.d., oxycodone IR 15 mg 1 p.o. t.i.d. PAIN CLINIC ASSESSMENT/PQRS: 1. The patient is not being treated for osteoarthritis or rheumatoid arthritis. 2. Height 5 feet 6 inches, weight 217 pounds, BMI is 35. 3. Vital signs: Blood pressure 142/78, heart rate 77, respiratory rate 16, room air saturation 97%. 4. Pain intensity is 4/10. 5. Fall history: The patient has not fallen in the last 3 months. 6. He continues to use a cane. 7. Blood thinner. The patient is not on a blood thinning medication. 8. Hypertension. The patient has not been treated for hypertension. 9. Opioids greater than 6 weeks. The patient receives medications from [facility]. 10. Risk assessment tool, low for opioid use. 11. Functional assessment tool [place] [address] PAIN MANAGEMENT CONSULTATION Name: BETTINA MCCRAY Room: [facility]#: [id number] Admission: 11/07/18 Attend Phys: Danay Smyth MD Discharge: Date of : 76 Report #: [id number] 12. Recreational drug use. The patient denies use of recreational drugs. 13. Tobacco: The patient denies use of tobacco. 14. Alcohol: The patient denies use of alcoholic beverages. PHYSICAL EXAMINATION: GENERAL: The patient is a well-developed, well-nourished white male. Appears his stated age. He is alert and oriented x 3. Affect is appropriate. Speech is fluent. HEENT: Normocephalic, atraumatic. Extraocular eye muscles intact. Sclerae nonicteric. Mucous membranes are moist. NECK: Without adenopathy or JVD. HEART: Regular rate. S1, S2. LUNGS: Clear to auscultation without rhonchi or rales. ABDOMEN: Nontender. Bowel sounds present. MUSCULOSKELETAL: Without significant scoliosis, kyphosis or lordosis. Upper extremity muscle strength 5/5. Lower extremity, the patient has some pain and discomfort in the L4-L5 dermatomal distribution as well as some pain down in the L5-S1 area. He continues to ambulate with use of a cane. Muscle strength in lower extremity 5 on the left leg and 5 or 4+ on the right leg. IMPRESSION: 1. Chronic pain with history of lumbar radiculopathy. 2. Status post lumbar diskectomy with decompression at the L5 dermatomal distribution. 3. Multiple degenerative disks in the lumbar spine and bulging at L4-L5 and L5-S1 with a small central annular tear at L4-L5. 4. Epidural fibrosis at L4-L5. 5. Multiple degenerative facet arthropathy at the lumbar spine. 6. History of hypertension. 7. Chronic pain treated with opioid medication. 8. Episodes of palpitation without significant clinical findings. RECOMMENDATIONS: We will continue with the patient's current medications. Overall, he feels things are going reasonably well. He is active. 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 Overall,things are going well. He has returned today for renewal of his medications. He does not have any concerns. Again, we discussed the risk use of opioid medication that can be medications can become problematic secondary to addiction. The patient also is aware that the medication can become lesser effective over a period of time secondary to development of tolerance. A script for his medications of OxyIR 15 mg to 1 to one half tablet p.o. t.i.d. has been written. The patient will continue with morphine ER 15 mg 1 p.o. b.i.d. A 3-month amount of medication has been written. The patient also has been given a script for gabapentin 600 mg with that he will take and continue with ibuprofen. He will monitor his GI tract[place] [address] PAIN MANAGEMENT CONSULTATION Name: MASON MCCRAYDUSTIN Price Room: [facility]#: [id number] Admission: 11/07/18 Attend Phys: Danay Smyth MD Discharge: Date of : 78 Report #: [id number] increased GI complaints he will stop this medication. We would like to thank you for letting us participate in his care. We hope he continues to improve. <ELECTRONICALLY SIGNED> By: Danay Smyth MD 11/08/18 1310 [id number]. Juan Smyth MD /nt
== END ==
LOC: M.PC 10-31 08:00
DX: G89.29 Other chronic pain (principal); M51.16 Intervertebral disc disorders with radiculopathy, lumbar region; I10 Essential (primary) hypertension; G96.19 Other disorders of meninges, not elsewhere classified; Z79.891 Long term (current) use of opiate analgesic; Z79.899 Other long term (current) drug therapy

== ENCOUNTER → 2018-12-26 | Outpatient (CLI) | payer OTHER ==
--- NOTE | ~2018-12-26 | PAINCON ---
[facility] [address] [place] [address] PAIN MANAGEMENT CONSULTATION Name: SHAZIABETTINA Albert Room: [facility] Ariana#: [id number] Admission: 12/26/18 Attend Phys: Danay Smyth MD Discharge: Date of : 78 Report #: [id number] THIS REPORT FOR: //name// CC: Reese Smyth DATE OF SERVICE: 12/26/2018 CHIEF COMPLAINT: Chronic lumbar pain. FOLLOWUP HISTORY: The patient is a 38-year-old gentleman who has been following in the Pain Clinic for quite some time. As you may recall, he has chronic pain involving his low back as well as pain that radiates down into his right leg. He does walk with a cane because of the problems with his leg. He is doing reasonably well. He feels that his medications are helpful. He is taking his medications as prescribed. He rates his pain as a 3/10. He feels the pain is improved by 75-80% with his current medical regimen. He feels that the oxycodone, morphine, ibuprofen and gabapentin altogether are working reasonably well. He has had no untoward problems with his medications since we saw him last. He has returned today for continued medical management of his chronic pain. He notes that walking sometimes exacerbates his pain and discomfort, because of low back pain as well as his leg pain. ALLERGIES: No known drug allergies. CURRENT MEDICATIONS: Neurontin 600 mg, ibuprofen 800 mg t.i.d., morphine ER 15 mg b.i.d., oxycodone IR 15 mg one p.o. t.i.d. PAIN CLINIC ASSESSMENT/PQRS: 1. The patient is not being treated for osteoarthritis or rheumatoid arthritis. 2. Height 5 feet 6 inches, weight 220 pounds, BMI is 35. 3. Vital signs: Blood pressure 110/67, heart rate 71, respiratory rate 16, room air saturation 98%, temperature 98.2. 4. Pain intensity: 09/29. 5. Fall history: The patient has not fallen but continues to walk with his cane. 6. Blood thinner: The patient is not on a blood thinning medication. 7. Hypertension: The patient is not being treated for hypertension. 8. Opioids greater than 6 weeks: The patient is on opioid regimen and receives his medications from one source, the Pain Clinic. 9. Risk assessment tool: Low for opioid use. 10. Functional assessment tool. 11. Recreational drug use: The patient denies use of recreational drugs. 12. Tobacco: The patient denies use of tobacco. 13. Alcohol: The patient [place] [address] PAIN MANAGEMENT CONSULTATION Name: BETTINA MCCRAY Room: [facility]#: [id number] Admission: 12/26/18 Attend Phys: Danay Smyth MD Discharge: Date of : 78 Report #: [id number] PHYSICAL EXAMINATION: GENERAL: The patient is a well-developed, well-nourished white male. He appears his stated age. He is alert and oriented x 3. His affect is appropriate. Speech is fluent. HEENT: Normocephalic, atraumatic. Extraocular eye muscles intact. Sclerae nonicteric. Mucous membranes are moist. NECK: Without adenopathy or JVD. HEART: Regular rate. S1 and S2. LUNGS: Clear to auscultation. ABDOMEN: Nontender. Bowel sounds present. MUSCULOSKELETAL: Upper extremity 5/5. Lower extremity 5-/5 with pain in the L5 dermatomal distribution involving his right leg. The patient is without scoliosis, kyphosis, or lordosis. The patient ambulates using his cane. IMPRESSION: 1. Chronic pain, secondary to lumbar radiculopathy history. 2. Status post lumbar discectomy with decompression at the L5 dermatomal distribution. 3. Multiple degenerative discs in the lumbar spine and bulging at L4-L5 and L5-S1 with a small central annular tear at L4-L5. 4. Epidural fibrosis. 5. Multiple degenerative facet arthropathy of the spine. 6. History of hypertension. 7. Chronic treatment of pain with complex medical management using opioid medication. 8. Episodes of palpitation, without significant clinical findings in the past. RECOMMENDATIONS: We discussed treatment options with the patient. At this juncture, we will continue with his medications. He feels that the medications are helpful. He feels that he is about 80% improved with this current regimen. He is not having any problem with the medications. We have discussed the use of opioid medications with the patient and their relevance. Patients sometimes can have problems with opioid medications in a long-term use. He appears to be taking the medications as prescribed and has not had any problems. We will continue with his medications. A script for his medication, morphine 15 mg one p.o. b.i.d. and OxyIR 15 mg one p.o. t.i.d. has been written. The patient will call us if he has any concerns. Again, he is aware that opioid medications are in the news. He is taking the medications as prescribed and is cognizant of the possible complications with their use. He keeps them in a guarded area. We will continue to help control the patient's pain through complex management of his pain with opioid medications. [address] [address] PAIN MANAGEMENT CONSULTATION Name: BETTINA MCCRAY Room: [facility] [address]#: [id number] Admission: 12/26/18 Attend Phys: Danay Smyth MD Discharge: Date of : 78 Report #: [id number] We would like to thank you for letting us participate in his care. By: [id number]. Juan Smyth MD /nt
== END ==
LOC: M.PC 05:35
DX: M54.16 Radiculopathy, lumbar region (principal); G89.29 Other chronic pain; G96.19 Other disorders of meninges, not elsewhere classified; I10 Essential (primary) hypertension; Z79.899 Other long term (current) drug therapy; Z79.891 Long term (current) use of opiate analgesic

== ENCOUNTER → 2019-02-27 | Outpatient (CLI) | payer OTHER ==
--- NOTE | ~2019-02-27 | PAINCON ---
[address] [address] PAIN MANAGEMENT CONSULTATION Name: SHAZIABETTINA Albert Room: [facility] [address]#: [id number] Admission: 02/27/19 Attend Phys: Danay Smyth MD Discharge: Date of : 78 Report #: [id number] THIS REPORT FOR: //name// CC: Reese Smyth DATE OF SERVICE: 02/27/2019 CHIEF COMPLAINT: "I got up from my chair yesterday and had a lot more pain. HISTORY: The patient is a 39-year-old gentleman who has been followed by the pain clinic in the past. He continues to have pain and discomfort, which is quite problematic. He has low back pain that radiates down into his right leg. He does walk with a cane. He had been doing reasonably well. Yesterday, the weather changed. He noticed after getting up from his chair that he continued to have more pain and had some difficulty walking. He denies any new trauma. He has been taking his medications as prescribed. He rates his pain between a 2 and 8 on most days. Today, it is 9. He notes that the use of this medication continues to be beneficial and he scores is pain is 50% improvement with use of his medications. He finds that the oxycodone, morphine, ibuprofen and gabapentin altogether continue to be helpful. He had no problems with the medications. Continues to take them as prescribed. He is having shooting, stabbing pain radiating to his knee. He has had epidural steroid injections in the past. At this juncture, he declines secondary to the cost. ALLERGIES: No known drug allergies. CURRENT MEDICATIONS: Neurontin 600 mg, ibuprofen 800 mg t.i.d., morphine ER 15 mg b.i.d., and OxyIR 15 mg 1 p.o. t.i.d. PAIN CLINIC ASSESSMENT/PQRS: 1. The patient is not being treated for osteoarthritis or rheumatoid arthritis. 2. Height 5 feet 6 inches, weight 220 pounds, BMI is 35. 3. Vital Signs: Blood pressure 125/67, heart rate 68, respiratory rate 16, room air saturation is 94%, and temperature 97.1. 4. Pain intensity 9/10. 5. Fall history: The patient has not fallen in the last 3 months. 6. Blood thinner. The patient is not on a blood thinning medication. 7. Hypertension. The patient is not being treated for hypertension. 8. Opioids greater than 6 weeks. The patient receives medication from one source, the pain clinic. 9. Risk assessment tool, low for opioid use. 10. Functional assessment tool. 11. Recreational drug use. The patient denies. 12. Tobacco: The patient denies use of tobacco. 13. Alcohol: The patient [place] [address] PAIN MANAGEMENT CONSULTATION Name: BETTINA MCCRAY Room: [facility]#: [id number] Admission: 02/27/19 Attend Phys: Danay Smyth MD Discharge: Date of : 78 Report #: [id number] PHYSICAL EXAMINATION: GENERAL: The patient is a well-developed, well-nourished white male. He is alert and oriented x 3. Affect is appropriate. Speech is fluent. HEENT: Normocephalic. Extraocular eye muscles intact. Sclerae nonicteric. Mucous membranes are moist. NECK: Without adenopathy or JVD. HEART: Regular rate. S1, S2. LUNGS: Clear to auscultation. ABDOMEN: Nontender. Bowel sounds present. EXTREMITIES: Upper extremity muscle strength 5/5 for the major muscle groups in the upper extremity and -5/5 in the lower extremity. He has some pain in the L5 dermatomal distribution of his right leg. The patient without significant kyphosis, scoliosis or lordosis. He ambulates with use of a cane. Moves slow today. IMPRESSION: 1. Chronic pain secondary to lumbar radiculopathy history. 2. Status post lumbar diskectomy with decompression at the L5 dermatomal distribution. 3. Multiple degenerative disks in the lumbar spine and bulging at L4-L5 and L5-S1 with a small central annular tear at L4-L5. 4. Epidural fibrosis. 5. Multiple degenerative facet arthropathy of the spine. 6. History of hypertension. 7. Chronic treatment of pain with complex medical regimen using opioids. 8. Episodes of palpitation, no clinical findings at this juncture. RECOMMENDATIONS: We discussed treatment options with the patient. We will continue with his medication. He has noted an increase in his pain. Rates it as a 9/10. He states that he was at work. He was sitting. He went to go from a sitting to a standing position, noted increased pain and discomfort. He has continued to have some pain and discomfort at this point. He rates his pain as a 9/10. He continues to take his medication as prescribed. He states he has taken his medication all week long. He has 50% improvement with use of medications. The patient is aware that opioid medications can become less effective over time secondary to development of tolerance. He states he takes his medication and keeps them in a guarded area. He is aware that in the media that opioid medications have been problematic for some patients causing dependence. He does not feel he is having any problems with dependency. He is taking the medications and keeps them in a guarded area. We will continue to provide the patient with his medications. A script for his complex medical management with opioids of OxyIR 15 mg one-half tablet or one tablet p.o. t.i.d., morphine sulfate 15 mg, gabapentin 600 mg, ibuprofen 800 mg. The patient will call us if he has any concerns. [place] [address] PAIN MANAGEMENT CONSULTATION Name: BETTINA MCCRAY Room: [facility]#: [id number] Admission: 02/27/19 Attend Phys: Danay Smyth MD Discharge: Date of : 78 Report #: [id number] injection remains. We would like to thank you for letting us participate in his care. We hope he continues to improve. By: [id number]. Juan Smyth MD /matthew
== END ==
LOC: M.PC 05:15
DX: M51.16 Intervertebral disc disorders with radiculopathy, lumbar region (principal); M51.27 Other intervertebral disc displacement, lumbosacral region; M12.88 Other specific arthropathies, not elsewhere classified, other specified site; G96.19 Other disorders of meninges, not elsewhere classified; I10 Essential (primary) hypertension; G89.29 Other chronic pain; Z79.891 Long term (current) use of opiate analgesic; Z79.899 Other long term (current) drug therapy

== ENCOUNTER → 2019-04-24 | Outpatient (CLI) | payer OTHER ==
--- NOTE | 2019-05-14 09:09 | PAINCON ---
[address] [address] PAIN MANAGEMENT CONSULTATION Name: BETTINA MCCRAY Room: [facility] Ariana#: [id number] Admission: 04/24/19 Attend Phys: Danay Smyth MD Discharge: Date of : 78 Report #: [id number] THIS REPORT FOR: //name// CC: Reese Smyth DATE OF SERVICE: 04/24/2019 CHIEF COMPLAINT: Here for medication renewal. HISTORY: The patient is a 39-year-old gentleman who has been followed in the pain clinic for quite a number of years. He suffers from chronic back pain that radiates down into his leg. He does continue to walk with a cane. He notes that his medications continue to be helpful. States that he has been taking his medications faithfully for the last number of years. He takes his medications on a daily basis. Feels that the medications are beneficial. Rates his pain as a 2/10. He notes that the oxycodone as well as some morphine continue to be helpful. Notes that things that exacerbate his discomfort with walking, changes in temperature as well as some activities. Overall, he feels that things are going reasonably well and would like to have his medications renewed today. ALLERGIES: No known drug allergies. CURRENT MEDICATIONS: Neurontin 600 mg, ibuprofen 800 mg t.i.d., morphine ER 15 mg b.i.d., OxyIR 15 mg t.i.d. PAIN CLINIC ASSESSMENT AND PQRS: 1. The patient is not being treated for osteoarthritis or rheumatoid arthritis. 2. Height 5 feet 6 inches, weight 219 pounds, BMI is 35.5. 3. Vital Signs: Blood pressure 114/72, heart rate 68, respiratory rate 18, room air saturation 97%, temperature 98.1. 4. Pain intensity 2/10. 5. Fall history: The patient has not fallen in the last 3 months. 6. Blood thinner. The patient is not on a blood thinning medication. 7. Hypertension. The patient is not being treated for hypertension. 8. Opioids greater than 6 weeks. The patient received medication from one source the pain clinic. 9. Risk assessment tool, low for opioid use. 10. Functional assessment tool. 11. Recreational drug use. The patient denies. 12. Tobacco: The patient denies. 13. Alcohol: The patient denies use of alcoholic beverages. PHYSICAL EXAMINATION: GENERAL: The patient is a well-developed, well-nourished white male. Appears his stated age. He is alert and oriented x 3. [place] [address] PAIN MANAGEMENT CONSULTATION Name: MASON MCCRAYDUSTIN Price Room: [facility]#: [id number] Admission: 04/24/19 Attend Phys: Danay Smyth MD Discharge: Date of : 76 Report #: [id number] Speech is fluent. HEENT: Normocephalic, atraumatic. Extraocular eye muscles intact. Sclerae nonicteric. Mucous membranes are moist. NECK: Without adenopathy or JVD. HEART: Regular rate. LUNGS: Clear to auscultation. ABDOMEN: Nontender. Bowel sounds present. EXTREMITIES: Upper extremity muscle strength judged to be 5/5 for the major muscle groups in the upper extremity. Lower extremity muscle strength 5-/5 for the lower extremity. The patient has pain in the L5 dermatomal distribution on his right. The patient is without significant kyphosis, scoliosis or lordosis. Ambulates with use of a cane. Moves slowly with an antalgic gait. IMPRESSION: 1. Chronic pain secondary to lumbar radicular history. 2. Status post lumbar diskectomy and decompression with L5 dermatomal distribution. 3. Multiple degenerative disks in the lumbar spine with bulging at L4-L5 and L5-S1 with a small central annular tear at L4-L5. 4. Epidural fibrosis. 5. Multiple degenerative facet arthropathy of the spine. 6. History of hypertension. 7. Chronic treatment of pain with complex medical management using opioids. 8. Episodes of palpitation, no clinical findings at this juncture. RECOMMENDATIONS: We discussed treatment options with the patient. Risks and benefits of opioid medication were described. We have continued to feel the patient's pain medications. States that he is taking them religiously on a regular basis. His scan did not show morphine. The patient states that he did take his medication, does take this medication every day and is taking it every day for years because of its benefits. He is aware that opioid medications can become less effective because of development of tolerance. He keeps his medications in a guarded area. He would like to have his medications renewed. A script for his medications of morphine sulfate 15 mg 1 p.o. b.i.d. have been written. The patient has had a 2-month supply. He has also been provided. Oxycodone 15 mg 1 p.o. t.i.d. with total of 90 tablets per day. The patient also feels gabapentin is helpful and script for Neurontin 270 tablets have been rewritten. The patient will also continue with ibuprofen and not notice effect note its effect on his GI tract. We would like to thank you for letting us participate in his care. We hope he continues to improve. <ELECTRONICALLY SIGNED> By: Danay Smyth MD 05/14/19 0909 [id number] [id number]. Juan Smyth MD /[facility]
== END ==
LOC: M.PC 05:33
DX: M51.26 Other intervertebral disc displacement, lumbar region (principal); M12.88 Other specific arthropathies, not elsewhere classified, other specified site; I10 Essential (primary) hypertension; Z79.891 Long term (current) use of opiate analgesic; G96.19 Other disorders of meninges, not elsewhere classified; Z79.899 Other long term (current) drug therapy

== ENCOUNTER → 2019-06-17 | Outpatient (CLI) | payer OTHER ==
--- NOTE | 2019-06-23 19:34 | PAINCON ---
[address] [address] PAIN MANAGEMENT CONSULTATION Name: SHAZIABETTINA Albert Room: [facility] Ariana#: [id number] Admission: 06/17/19 Attend Phys: Danay Smyth MD Discharge: Date of : 76 Report #: [id number] THIS REPORT FOR: //name// CC: Reese Smyth DATE OF SERVICE: 06/17/2019 CHIEF COMPLAINT: Medications are still helpful to low back pain and right leg pain. HISTORY: The patient is a 39-year-old gentleman who has been followed in the pain clinic. As you may recall, he suffers from lumbar radiculopathy. He is status post back surgeries and diskectomy as well as decompression laminectomies. He continues to have pain, which is still problematic. Rates his pain as a 3/10 at this point. He feels that his medications enable him to engage in activities, he would not be able to without their use. Still walks with a cane because of the weakness and pain that he experiences. Pain is primarily down the lower back area and into his right leg. His medications make his pain tolerable. He does have a new baby at home who is about 3 months old with his second . He rates his pain as about 50% improved with his current medical regimen. He would like to continue with his medications and has returned to the Pain Clinic for prescription renewals. Notes his pain is worse since the temperature outside is cold. Walking and other activities are more problematic. Notes that the pain improves with use of heat as well as with his medications. ALLERGIES: No known drug allergies. CURRENT MEDICATIONS: Neurontin 600 mg, ibuprofen 800 mg t.i.d., morphine ER 15 mg b.i.d., OxyIR 15 mg t.i.d. PAIN CLINIC ASSESSMENT AND PQRS: 1. The patient is not being treated for osteoarthritis or rheumatoid arthritis. 2. Height 5 feet 6 inches, weight 226 pounds, BMI is 34. 3. Vital Signs: Blood pressure 132/74, heart rate 64, respiratory rate 16, room air saturation is 97%, and temperature 97.9. 4. Pain intensity 09/29. 5. Fall history: The patient has not fallen in the last 3 months. 6. Blood thinner: The patient is not on a blood thinning medication. 7. Hypertension: The patient is not being treated for hypertension. 8. Opioids greater than 6 weeks. The patient received medication from one source, Pain Clinic. 9. Risk assessment tool, low for opioid use. 10. [place] [address] PAIN MANAGEMENT CONSULTATION Name: BETTINA MCCRAY Albert Room: [facility]#: [id number] Admission: 06/17/19 Attend Phys: Danay Smyth MD Discharge: Date of : 78 Report #: [id number] 11. Recreational drug use: The patient denies. 12. Tobacco: The patient denies use of smoking tobacco, but does chew tobacco. 13. Alcohol: The patient denies use of alcoholic beverages. PHYSICAL EXAMINATION: GENERAL: The patient is a well-developed, well-nourished white male. Appears his stated age. He is alert and oriented x 3. His affect is appropriate. Speech is fluent. HEENT: Normocephalic, atraumatic. Extraocular eye muscles intact. Sclerae nonicteric. Mucous membranes are moist. NECK: Without adenopathy or JVD. LUNGS: Clear to auscultation. ABDOMEN: Nontender. MUSCULOSKELETAL: Upper extremity muscle strength judged to be 5/5 for the major muscle groups in the upper extremity. The patient has pain in the L5-S1 dermatomal distribution involving his right leg. The patient is without scoliosis, kyphosis or lordosis. Ambulates with a cane, moves slowly with an antalgic gait. IMPRESSION: 1. Chronic pain secondary to lumbar radicular history. 2. Status post lumbar diskectomy and decompression with L5 dermatomal distribution of pain. 3. Multiple degenerative disks in lumbar spine with bulging at L4-L5 and L5-S1, with a small central annular tear at L4-L5. 4. Epidural fibrosis. 5. Multiple degenerative facet joints with arthropathy of the spine. 6. History of hypertension. 7. Chronic treatment of pain with complex medical management using opioids. 8. History of palpitations, no clinical complaints at this juncture. RECOMMENDATIONS: We discussed treatment options with the patient. Risks and benefits of the opioids again have been discussed. The patient feels the medications are helpful. He continues to take his medication as prescribed. He denies any diversion of medications. He is aware of the tolerance that develops over a long period of time with use of opioids. He is aware that 70,000 people last year as a result of use of medications. At this point, we will continue with his current medications of opioids to help control his pain and discomfort. The patient continues to be gainfully employed. He continues to have pain and discomfort, which radiates down to his leg. At this juncture, he is not going to undergo any additional surgery. A script for his medications has been rewritten. The patient will continue with Roxicodone 15 mg 1 p.o. t.i.d. and morphine ER 15 mg 1 p.o. b.i.d. He will call us if [place] [address] PAIN MANAGEMENT CONSULTATION Name: BETTINA MCCRAY Room: [facility]#: [id number] Admission: 06/17/19 Attend Phys: Danay Smyth MD Discharge: Date of : 78 Report #: [id number] We would like to thank you for letting us participate in his care. Hopefully, things continue to go well. The patient does have a new 3-month-old infant. <ELECTRONICALLY SIGNED> By: Danay Smyth MD 06/23/19 1934 1323 2115N. Juan Smyth MD /nt
== END ==
LOC: M.PC 05:29
PROVIDERS: Anesthesiology Pain Medicine
DX: M51.16 Intervertebral disc disorders with radiculopathy, lumbar region (principal); M51.17 Intervertebral disc disorders with radiculopathy, lumbosacral region; I10 Essential (primary) hypertension; G89.29 Other chronic pain; Z98.1 Arthrodesis status; Z79.899 Other long term (current) drug therapy; Z79.891 Long term (current) use of opiate analgesic

== ENCOUNTER → 2019-08-14 | Outpatient (CLI) | payer OTHER ==
--- NOTE | ~2019-08-14 | PAINCON ---
[address] [address] PAIN MANAGEMENT CONSULTATION Name: BETTINA MCCRAY [id number] Admission: 08/14/19 Attend Phys: Danay Smyth MD Discharge: Date of : 78 Report #: [id number] THIS REPORT FOR: //name// CC: LAURA Smyth DATE OF SERVICE: 08/14/2019 PRIMARY CARE PHYSICIAN: Laura Humphrey MD CHIEF COMPLAINT: Here for medication renewal, things are going pretty well. HISTORY: The patient is a 39-year-old gentleman who has been followed in the Pain Clinic for quite some time. He returns today with complaint of pain in his low back area. Continues to have pain in his right leg. He ambulates with use of a cane. He has noted a new problem. States that when he is having relationships with his and exerts himself, he notes pain and discomfort in the base of his head that radiates to the top of his head. He notes that when he is having relations and he is not exerting himself, he does not experience the same pain in the top of his head. He notes that the headache pain and discomfort can last for about 2 days. He has contacted his doctor. They were in the process of evaluating him with the possibility of imaging of his head and ensure there is not a vascular component. He rates his pain as a 1/10 today. He feels that his pain is greater than 50% improved with use of his welk medications. ALLERGIES: No known drug allergies. CURRENT MEDICATIONS: Neurontin 600 mg, ibuprofen 800 mg t.i.d., morphine ER 15 mg b.i.d., OxyIR 15 mg t.i.d. PAIN CLINIC ASSESSMENT AND PQRS: 1. The patient is not being treated for osteoarthritis or rheumatoid arthritis. 2. Height 5 feet 6 inches, weight 225 pounds, BMI is 36.3. 3. Vital signs: Blood pressure is 126/79, heart rate 79, respiratory rate 16, room air saturation 96%, temperature 98.5. 4. Pain intensity 09/01. 5. Fall history: The patient has not fallen in the last 3 months. 6. Blood thinner: The patient is not on a blood thinning medication. 7. Hypertension: The patient is not being treated for hypertension. 8. Opioids greater than 6 weeks. The patient receives medication from one source, the Pain Clinic. 9. Risk assessment tool, low for opioids. 10. Functional assessment tool. 11. Recreational drug use: [place] [address] PAIN MANAGEMENT CONSULTATION Name: BETTINA MCCRAY Albert Room: [facility]#: [id number] Admission: 08/14/19 Attend Phys: Danay Smyth MD Discharge: Date of : 78 Report #: [id number] 12. Tobacco: The patient denies use of smoking tobacco, but does chew tobacco. Risks and benefits of oral use of tobacco have been discussed. 13. Alcohol: The patient denies use of alcoholic beverages. The patient's last urine drug screen was positive for the appropriate opioid medications he is taking and none of which were not suspected were found. PHYSICAL EXAMINATION: GENERAL: The patient is a well-developed, well-nourished white male. He appears his stated age. He is alert and oriented x 3. His affect is appropriate. Speech is fluent. HEENT: Normocephalic, atraumatic. Extraocular eye muscles intact. The patient does have some dysconjugate gaze. This has been present since my first visit with him. NECK: Without adenopathy or JVD. LUNGS: Clear to auscultation. ABDOMEN: Nontender. EXTREMITIES: Upper extremity muscle strength judged to be 5/5 for the major muscle groups in the upper extremity. The patient's pain is in the L5-S1 dermatomal distribution involving his right leg. The patient without significant scoliosis, kyphosis or lordosis. He ambulates with a cane. Moves and changes from a sitting to a standing position using his hands on the chair. IMPRESSION: 1. Chronic pain secondary to lumbar radiculopathy history. 2. Status post lumbar diskectomy and decompression with L5 dermatomal distribution of pain. 3. Multiple degenerative disks in the lumbar spine with bulging at L4-L5 and L5-S1 with a central annular tear at L4-L5. 4. Epidural fibrosis. 5. Multiple degenerative facet joints with arthropathy of the spine. 6. History of hypertension. 7. Chronic pain treated with A complex medical management using opioids. 8. History of palpitations, no clinical correlations found. RECOMMENDATIONS: We discussed treatment options with the patient. At this juncture, we will continue with his medications. He finds the medications are helpful. He is not having any complications with their use. He has noted some increased problems with headaches. The headaches are associated with sexual relations with his . Notes that if he is exerting himself, he noticed some increased pain and discomfort. The pain starts at the bottom of his neck and goes up to the top of his head. The headaches can last for up to 2 days. He is going to have imaging of his brain, low for possibility of aneurysms in the near future. He will continue with his medications. A script for his medications has been rewritten. He will continue with oxycodone 15 mg 1 p.o. t.i.d. He will also continue with morphine 15 mg, MS Contin [address] [place] [address] PAIN MANAGEMENT CONSULTATION Name: BETTINA MCCRAY Room: [facility] Ariana#: [id number] Admission: 08/14/19 Attend Phys: Danay Smyth MD Discharge: Date of : 78 Report #: [id number] We would like to thank you for letting us participate in his care. We hope he continues to improve. 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 By: [id number]. Juan Smyth MD /nt
== END ==
LOC: M.PC 08:00
DX: G89.29 Other chronic pain (principal); M51.26 Other intervertebral disc displacement, lumbar region; I10 Essential (primary) hypertension; G96.19 Other disorders of meninges, not elsewhere classified

== ENCOUNTER → 2019-10-09 | Outpatient (CLI) | payer OTHER ==
--- NOTE | 2019-10-17 09:01 | PAINCON ---
[address] [address] PAIN MANAGEMENT CONSULTATION Name: BETTINA MCCRAY [id number] Admission: 10/09/19 Attend Phys: Danay Smyth MD Discharge: Date of : 78 Report #: [id number] THIS REPORT FOR: //name// cc: LAURA LEI KEVIN ~ THIS REPORT FOR: //name// CC: LAURA Smyth DATE OF SERVICE: 10/09/2019 CHIEF COMPLAINT: Pain in the low back and right leg. HISTORY: The patient is a 39-year-old gentleman who has been followed. Has pain and discomfort in the low back area. He has returned today for renewal of his medications. He feels that they are 75-80% beneficial. He has noted some more pronounced right leg pain. He notes that the weather has changed. It is rainy outside. He feels that his medications enable him to manage his pain reasonably well. He has started working from home because of the virus, COVID-19. Overall, things are going reasonably well. He has returned today for renewal of his medication. ALLERGIES: No known drug allergies. CURRENT MEDICATIONS: Neurontin 600 mg, ibuprofen 800 mg t.i.d., morphine ER 15 mg b.i.d., and OxyIR 15 mg t.i.d. PAIN CLINIC ASSESSMENT AND PQRS: 1. The patient is not being treated for osteoarthritis or rheumatoid arthritis. 2. Height 5 feet 6 inches, weight 225 pounds, BMI is 36.3. 3. Vital signs: Blood pressure 97/63, heart rate 74, respiratory rate 16, room air saturation 98%, and temperature 98.2. 4. Pain intensity 12/30. 5. Fall history: The patient has not fallen in the last 3 months. 6. Blood thinner. The patient is not on a blood thinning medication. 7. Risk assessment tool, low for opioid use. 8. Functional assessment tool. 9. Recreational drug use: The patient denies. 10. Tobacco: The patient denies smoking tobacco. He does chew tobacco. Risks and benefits of tobacco have been discussed. 11. Alcohol. The patient denied more than occasional use of alcoholic beverages. PHYSICAL EXAMINATION: [place] [address] PAIN MANAGEMENT CONSULTATION Name: BETTINA MCCRAY Albert Room: [facility]#: [id number] Admission: 10/09/19 Attend Phys: Danay Smyth MD Discharge: Date of : 78 Report #: [id number] GENERAL: The patient is a well-developed, well-nourished white male. Appears his stated age. He is alert and oriented x 3. His affect is appropriate. Speech is fluent. HEENT: Normocephalic, atraumatic. Extraocular eye muscles are intact. Sclerae are nonicteric. The patient does have slight disconjugate gaze. This has been noted on each previous visit. NECK: Without adenopathy or JVD. LUNGS: Clear to auscultation. ABDOMEN: Nontender. EXTREMITIES: Upper extremity muscle strength judged to be 5/5 for the major muscle groups in the upper extremity. The patient has pain in the L5-S1 dermatomal distribution on his right leg. The patient is without significant scoliosis, kyphosis, or lordosis. He does ambulate using a cane. He uses hands to go from a sitting to a standing position before walking. IMPRESSION: 1. Chronic pain secondary to lumbar radiculopathy history. 2. Status post lumbar diskectomy and decompression with L5 dermatomal distribution of pain. 3. Multiple degenerative disks in the lumbar spine with bulging disk at L4-L5 and L5-S1 with a central annular tear at L4-L5. 4. Epidural fibrosis. 5. Multiple degenerative facet joints with arthropathy of the spine. 6. History of hypertension. 7. Chronic pain treated with complex medical management using opioids. 8. History of palpitations, no clinical problems at this juncture. RECOMMENDATIONS: We discussed treatment options with the patient. At this juncture, we will continue with his medications. He finds that the medications continue to be helpful. He has noted some increased headaches on occasion. He has returned for renewal of his medications. A prescription for his medications has been rewritten. He is aware that chronic use of these medications can cause him to become less effective. He is aware that some people have become addicted to the medication. He has not shown any signs of addiction. We would like to thank you for letting us participate in his care. We hope he continues to improve. <ELECTRONICALLY SIGNED> By: Danay Smyth MD 10/17/19 0901 [id number] 2224N. Juan Smyth MD /nt
== END ==
LOC: M.PC 03:58
DX: M51.36 Other intervertebral disc degeneration, lumbar region (principal); M51.26 Other intervertebral disc displacement, lumbar region; M79.604 Pain in right leg; G96.19 Other disorders of meninges, not elsewhere classified; M12.88 Other specific arthropathies, not elsewhere classified, other specified site; I10 Essential (primary) hypertension; G89.29 Other chronic pain; F11.20 Opioid dependence, uncomplicated; Z87.39 Personal history of other diseases of the musculoskeletal system and connective tissue; Z79.899 Other long term (current) drug therapy

== ENCOUNTER → 2019-12-04 | Outpatient (CLI) | payer OTHER ==
--- NOTE | 2019-12-22 09:22 | PAINCON ---
[address] [address] PAIN MANAGEMENT CONSULTATION Name: BETTINA MCCRAY Room: [facility].#: [id number] Admission: 12/04/19 Attend Phys: Danay Smyth MD Discharge: Date of : 78 Report #: [id number] THIS REPORT FOR: //name// cc: Reese Mckay MD, Alan J. MD ~ THIS REPORT FOR: //name// CC: Reese Smyth DATE OF SERVICE: 12/04/2019 CHIEF COMPLAINT: Continued low back pain and right leg pain. HISTORY: The patient is a 39-year-old gentleman who has been followed in the pain clinic. As you may recall, he continues to have chronic pain. He is status post L4/L5 laminectomy. His pain continues in spite of this. He continues to have pain and rates it at 1/10 today. It involves his right side. He continues to walk with a cane. He notes that the weather also affects his pain. Pain is less problematic when he is able to get out and walk. He feels overall that his pain medications are helping to manage his discomfort. He is still staying at home because of the Covid-19 pandemic. He has returned today with hopes of having his medications renewed. ALLERGIES: No known drug allergies. CURRENT MEDICATIONS: Neurontin 600 mg, ibuprofen 800 mg t.i.d., morphine ER 15 mg b.i.d., and OxyIR 15 mg t.i.d. PAIN CLINIC ASSESSMENT AND PQRS: 1. The patient is not being treated for rheumatoid arthritis or osteoarthritis. 2. Height 5 feet 6 inches, weight 228 pounds, BMI is 36.9. 3. Vital signs: Blood pressure 119/69, heart rate 72, respiratory rate 16, room air saturation 98%, temperature 97.3. 4. Pain intensity 08/01. 5. Fall history: The patient has not fallen in the last 3 months. 6. Blood thinner. The patient is not on a blood thinning medication. 7. Hypertension. The patient is not being treated for hypertension. 8. Risk assessment tool, low for opioid use. 9. Functional assessment tool, reviewed. 10. Recreational drug use. The patient denies. 11. Tobacco: The patient denies smoking. He does chew tobacco. Risks and benefits of tobacco use have been discussed. 12. Alcohol: The patient denies more than occasional [place] [address] PAIN MANAGEMENT CONSULTATION Name: BETTINA MCCRAY Room: [facility]#: [id number] Admission: 12/04/19 Attend Phys: Danay Smyth MD Discharge: Date of : 78 Report #: [id number] PHYSICAL EXAMINATION: GENERAL: The patient is a well-developed, well-nourished white male. Appears his stated age. He is alert and oriented x 3. His affect is appropriate. Speech is fluent. HEENT: Normocephalic, atraumatic. Extraocular eye muscles intact. Sclerae nonicteric. Mucous membranes are moist. The patient has a slightly disconjugate gaze. This has been present at all previous visits. NECK: Without adenopathy or JVD. LUNGS: Clear to auscultation. ABDOMEN: Nontender. EXTREMITIES: Upper extremity muscle strength judged to be 5/5 for the major muscle groups in the upper extremity. The patient has pain in the L5-S1 dermatomal distribution involving his right leg. He is without significant scoliosis, kyphosis, or lordosis. He ambulates with a cane. Uses hands to go from a sitting to a standing position prior to walking. IMPRESSION: 1. Chronic pain secondary to lumbar radicular history. 2. Status post lumbar diskectomy with decompression with L5 dermatomal distribution of pain. 3 Multiple disk in the lumbar spine with bulging disk at L4-L5 and L5-S1 with a central annular tear at L4-L5. 4. Epidural fibrosis. 5. Multiple degenerative facet joints with arthropathy of the spine. 6. History of hypertension. 7. Chronic pain, treated with complex medical management using opioids. 8. History of palpitations, no clinical problems at this juncture. RECOMMENDATIONS: We discussed treatment options with the patient. At this juncture, we will continue with his medications. He is aware that opioid medications can become less effective as time goes on. He keeps his medications in a guarded area. He is concerned that the Covid-19 virus is present. He is not showing any signs of addiction. We will continue with his medications. A script for his medications of oxycodone 15 mg 1 p.o. t.i.d. has been written. The patient will also continue with gabapentin 600 mg 1 p.o. t.i.d. He will monitor his GI tract with use of ibuprofen. He will take this three times a day, should he note some GI distress he will stop taking/decreased use of ibuprofen. He will continue with MS Contin 15 mg 1 p.o. b.i.d. He feels overall that his pain is about 75-80% improved with his current medication regimen. We would like to thank you for letting us participate in his care. We hope he [address] [address] PAIN MANAGEMENT CONSULTATION Name: BETTINA MCCRAY Room: [facility] [address]#: [id number] Admission: 12/04/19 Attend Phys: Danay Smyth MD Discharge: Date of : 78 Report #: [id number] continues to improve. A script for his medications were sent via internet to his pharmacy. <ELECTRONICALLY SIGNED> By: Danay Smyth MD 12/22/19 0922 [id number] 0332N. Juan Smyth MD /nt
== END ==
LOC: M.PC 04:11
DX: M51.27 Other intervertebral disc displacement, lumbosacral region (principal); G96.19 Other disorders of meninges, not elsewhere classified; M12.88 Other specific arthropathies, not elsewhere classified, other specified site; I10 Essential (primary) hypertension; M79.604 Pain in right leg; G89.29 Other chronic pain; Z98.890 Other specified postprocedural states; Z79.899 Other long term (current) drug therapy

== ENCOUNTER → 2020-01-29 | Outpatient (CLI) | payer OTHER | END | disposition home or self-care (01) | LOC: M.PC 04:27 | PROVIDERS: ATTEND Anesthesiology Pain Medicine | DX: M54.5 Low back pain (principal); M79.604 Pain in right leg ==

== ENCOUNTER → 2020-03-25 | Outpatient (CLI) | payer OTHER ==
--- NOTE | 2020-04-15 08:38 | PAINCON ---
[address] [address] PAIN MANAGEMENT CONSULTATION Name: BETTINA MCCRAY Room: [facility]#: [id number] Admission: 03/25/20 Attend Phys: Danay Smyth MD Discharge: Date of : 76 Report #: [id number] THIS REPORT FOR: //name// cc: LAURA LEI KEVIN THIS REPORT FOR: //name// CC: MD LAURA Lorenzo DATE OF SERVICE: 03/25/2020 PRIMARY CARE PHYSICIAN: Reese Mckay MD CHIEF COMPLAINT: Low back pain and right leg pain. HISTORY: The patient is a 40-year-old gentleman who has been followed in the pain clinic. He is status post laminectomy. The involved area was L4-L5. In spite of surgery, he continues to have pain. Notes that the pain is a 2/10 today. It involves his right leg. He continues to walk with a cane because of discomfort. He notes that activities, walking, sitting for a prolonged period of time, standing for a prolonged period of time, climbing stairs, lifting and bending all exacerbate his discomfort. Overall, he feels his medications are working reasonably well. He would like to continue with the medications. ALLERGIES: No known drug allergies. CURRENT MEDICATIONS: Neurontin 600 mg, ibuprofen 800 mg t.i.d., morphine 15 mg ER b.i.d., OxyIR 15 mg t.i.d. PAIN CLINIC ASSESSMENT AND PQRS: 1. The patient is not being treated for rheumatoid arthritis or osteoarthritis. 2. Height 5 feet 6 inches, weight 218 pounds, BMI is 35.3. 3. Vital signs: Blood pressure is 121/72, heart rate 65, respiratory rate 16, room air saturation 96%, temperature 96.2. 4. Pain intensity 10. 5. Fall history: The patient has not fallen, but does walk with a cane. 6. Blood thinner. The patient is not on a blood thinning medication. 7. Hypertension. The patient is not being treated for hypertension. 8. Risk assessment tool, low for opioid use. 9. Functional assessment tool, reviewed. 10. Recreational drug use. The patient denies. 11. Tobacco: The patient denies use of tobacco. 12. Alcohol. The patient denies use of [place] [address] PAIN MANAGEMENT CONSULTATION Name: BETTINA MCCRAY Room: [facility]#: [id number] Admission: 03/25/20 Attend Phys: Danay Smyth MD Discharge: Date of : 76 Report #: [id number] PHYSICAL EXAMINATION: GENERAL: The patient is a well-developed, well-nourished white male. Appears his stated age. He is alert and oriented x 3. His affect is appropriate. Speech is fluent. HEENT: Normocephalic, atraumatic. Extraocular eye muscles intact. The patient does have somewhat of a disconjugate gaze. This has been present at all times. He is wearing a mask. NECK: Without adenopathy or JVD. LUNGS: Clear to auscultation. ABDOMEN: Nontender. EXTREMITIES: Upper extremity muscle strength judged to be 5/5 for the major muscle groups in the upper extremity. The patient has pain and discomfort in the L5-S1 dermatomal distribution involving his right leg. The patient is without significant scoliosis, kyphosis or lordosis. Has a cane. Uses his hands to go from a sitting to walking position. IMPRESSION: 1. Chronic pain secondary to lumbar radiculopathy. 2. Status post lumbar diskectomy at L5 with dermatomal pain in this distribution. 3. Multiple disk in the lumbar spine with bulging disk at L4-L5 and L5-S1 with central annular tear at L4-L5. 4. Epidural fibrosis. 5. Multiple degenerative facet joints with arthropathy of the spine. 6. History of hypertension. 7. Chronic pain treated with complex medical management using opioids. 8. History of palpitations, no clinical findings at this juncture. RECOMMENDATIONS: We discussed treatment options with the patient. At this juncture, we will continue with his medications. He finds the medications continue to be helpful. He is aware these medications can become less effective as time goes on. Feels his medications provides 70-80% pain improvement. He keeps his medications in a guarded area. His medications have been sent to his pharmacy. A script for ibuprofen 800 mg t.i.d. has been provided. The patient will monitor his GI tract. He will also continue with morphine sulfate ER 15 mg. He will continue with Roxicodone 15 mg 1 p.o. daily x3. He will continue with gabapentin 600 mg 1 p.o. t.i.d. We would like to thank you for letting us participate in his care. We hope he continues to improve. <ELECTRONICALLY SIGNED> By: Danay Smyth MD 04/15/20 [id number]. Juan Smyth MD /PMT
== END ==
LOC: M.PC 08:10
PROVIDERS: ATTEND Anesthesiology Pain Medicine
DX: M51.16 Intervertebral disc disorders with radiculopathy, lumbar region (principal); M79.604 Pain in right leg; I10 Essential (primary) hypertension; F11.20 Opioid dependence, uncomplicated; Z79.899 Other long term (current) drug therapy

== ENCOUNTER → 2020-05-25 | Outpatient (CLI) | payer OTHER ==
--- NOTE | 2020-06-14 11:03 | PAINCON ---
[facility] [address] [place] [address] PAIN MANAGEMENT CONSULTATION Name: BETTINA MCCRAY Room: [facility]#: [id number] Admission: 05/25/20 Attend Phys: Danay Smyth MD Discharge: Date of : 76 Report #: [id number] THIS REPORT FOR: //name// cc: LAURA LEI KEVIN ~ CC: Reese Smyth DATE OF SERVICE: 05/25/2020 CHIEF COMPLAINT: Low back pain, medications still very helpful. HISTORY: The patient is a 40-year-old gentleman who has been followed in the pain clinic because of chronic back pain. He is status post laminectomy with laminectomy syndrome with continued pain and discomfort. This involves the L4-L5 area. He rates his pain today as a 2/10, involves in his right leg. He continues to walk with his cane because of the problem. He notes that the changes in weather, walking, sitting, standing and lifting can be more problematic. Overall, he thinks that things are going reasonably well and would like to continue with his medication. ALLERGIES: No known drug allergies. CURRENT MEDICATIONS: Neurontin 600 mg, ibuprofen 800 mg t.i.d., morphine 15 mg ER b.i.d., and OxyIR 15 mg t.i.d. PAIN CLINIC ASSESSMENT AND PQRS: 1. The patient is not being treated for rheumatoid arthritis or osteoarthritis. 2. Height 5 feet 6 inches, weight 218 pounds, BMI is 35. 3. Vital Signs: Blood pressure 120/67, heart rate 70, respiratory rate 16, room air saturation 97%, and temperature 97.9. 4. Pain intensity /10. 5. Fall history: The patient has not fallen. He does walk with a cane. 6. Blood thinner. The patient is not on a blood thinning medication. 7. Hypertension. The patient is not being treated for hypertension. 8. Opioids. The patient receives medication from one source the pain clinic. 9. Risk assessment tool, low for opioid use. 10. Functional assessment tool reviewed. 11. Recreational drug use: The patient denies. 12. Tobacco: The patient denies. 13. Alcohol. The patient denies and only drinks on occasion. PHYSICAL EXAMINATION: GENERAL: The patient is a well-developed, well-nourished white male. Appears his stated age. He is alert and oriented x 3. [place] [address] PAIN MANAGEMENT CONSULTATION Name: BETTINA MCCRAY Room: [facility]#: [id number] Admission: 05/25/20 Attend Phys: Danay Smyth MD Discharge: Date of : 76 Report #: [id number] Speech is fluent. HEENT: Normocephalic, atraumatic. Extraocular eye muscles intact. Sclerae nonicteric. Mucous membranes are moist. The patient has a disconjugate gaze. This has been present. He is wearing a mask. NECK: Without adenopathy or JVD. LUNGS: Clear to auscultation. ABDOMEN: Nontender. EXTREMITIES: Upper extremity muscle strength judged to be 5/5 for the major muscle groups in the upper extremity. The patient has pain and discomfort in the L5-S1 dermatomal distribution involving his right leg. The patient uses a cane. He uses hands to go from a sitting to a standing position. IMPRESSION: 1. Chronic pain secondary to lumbar radiculopathy. 2. Status post lumbar diskectomy at L5 with dermatomal pain in this distribution. 3. Multiple disk in the lumbar spine with facet joint changes. 4. History of hypertension. 5. Chronic pain treated with complex medical management using opioids. 6. History of palpitations. 7. No clinical findings at this juncture. RECOMMENDATIONS: We discussed treatment options with the patient. Risks and benefits of opioid medications have again been discussed with the patient. We have done this on each occasion. The patient is aware that opioid medications can become less effective as time goes on because of development of tolerance. He keeps his medications in a guarded area. He does have a young child. He has been provided with a script for his medications. A script for morphine ER 15 mg has been provided. The patient will also continue with Roxicodone 15 mg 1 p.o. t.i.d. The patient finds that gabapentin is beneficial and this will be continued at 600 mg 1 p.o. t.i.d. We would like to thank you for letting us participate in his care. We hope he continues to improve. <ELECTRONICALLY SIGNED> By: Danay Smyth MD 06/14/20 [id number]. Juan Smyth MD /nt
== END ==
LOC: M.PC 09:06
PROVIDERS: ATTEND Anesthesiology Pain Medicine
DX: M54.5 Low back pain (principal)

== ENCOUNTER → 2020-07-29 | Outpatient (CLI) | payer OTHER | LOC: M.PC 10:36 | PROVIDERS: ATTEND Anesthesiology Pain Medicine | DX: M47.26 Other spondylosis with radiculopathy, lumbar region (principal); G89.29 Other chronic pain; M47.816 Spondylosis without myelopathy or radiculopathy, lumbar region; I10 Essential (primary) hypertension ==

== ENCOUNTER → 2020-09-23 | Outpatient (CLI) | payer OTHER ==
[~2020-09-23] MED LIST changes: +PROZAC20 M1 PO
== END ==
LOC: M.PC 08:11
PROVIDERS: ATTEND Anesthesiology Pain Medicine
DX: M54.16 Radiculopathy, lumbar region (principal); M96.1 Postlaminectomy syndrome, not elsewhere classified; I10 Essential (primary) hypertension; G89.29 Other chronic pain; F11.20 Opioid dependence, uncomplicated; Z88.8 Allergy status to other drugs, medicaments and biological substances; Z79.899 Other long term (current) drug therapy

== ENCOUNTER → 2020-11-18 | Outpatient (CLI) | payer OTHER | LOC: M.PC 08:06 | PROVIDERS: ATTEND Anesthesiology Pain Medicine | DX: M54.16 Radiculopathy, lumbar region (principal); G89.29 Other chronic pain; Z86.79 Personal history of other diseases of the circulatory system; Z98.890 Other specified postprocedural states ==

== ENCOUNTER → 2021-01-13 | Outpatient (CLI) | payer OTHER | LOC: M.PC 08:20 | PROVIDERS: ATTEND Anesthesiology Pain Medicine | DX: G89.29 Other chronic pain (principal); M51.16 Intervertebral disc disorders with radiculopathy, lumbar region; I10 Essential (primary) hypertension; F17.200 Nicotine dependence, unspecified, uncomplicated; Z68.36 Body mass index [BMI] 36.0-36.9, adult; Z98.1 Arthrodesis status; Z79.891 Long term (current) use of opiate analgesic; Z79.899 Other long term (current) drug therapy; Z86.79 Personal history of other diseases of the circulatory system ==

== ENCOUNTER → 2021-05-05 | Outpatient (CLI) | payer OTHER ==
[~2021-05-05] MED LIST changes: +TAMSULOSIN HCL0.4 MG PO; +ZOLOFT50 M1 PO
== END ==
LOC: M.PC 08:10
PROVIDERS: ATTEND Anesthesiology Pain Medicine
DX: G89.29 Other chronic pain (principal); M54.16 Radiculopathy, lumbar region; I10 Essential (primary) hypertension; F17.200 Nicotine dependence, unspecified, uncomplicated; Z79.899 Other long term (current) drug therapy; Z98.890 Other specified postprocedural states

== ENCOUNTER → 2021-06-30 | Outpatient (CLI) | payer OTHER | LOC: M.PC 08:40 | PROVIDERS: ATTEND Anesthesiology Pain Medicine | DX: M54.16 Radiculopathy, lumbar region (principal); M96.1 Postlaminectomy syndrome, not elsewhere classified; I10 Essential (primary) hypertension; M79.604 Pain in right leg; Z79.899 Other long term (current) drug therapy ==

== ENCOUNTER → 2021-09-01 | Outpatient (CLI) | payer OTHER ==
[~2021-09-01] MED LIST changes: +ROXICODONE15 MG PO
== END ==
LOC: M.PC 08-25 08:20
PROVIDERS: ATTEND Anesthesiology Pain Medicine
DX: M51.36 Other intervertebral disc degeneration, lumbar region (principal); M54.16 Radiculopathy, lumbar region; I10 Essential (primary) hypertension; R00.2 Palpitations; Z79.899 Other long term (current) drug therapy